=== PATIENT | female | born 1925 | race Caucasian/White ===

== ENCOUNTER 2016-04-20 17:45 | Emergency (ER) | payer MEDICARE, BC ==
[2016-03-01 11:02] VITALS: BMI 23.3
[~2016-04-20 17:45] MED LIST: ALAVERT10 MG/TAB PO; BAYER ASPIRIN325 MG PO; CALCIUM 600 +1 EAC3 PO; CARBIDOPA-LEVO1 EAC2 PO; COLACE100 MG PO; LOPRESSOR25 MG PO; MACRODANTIN50 MG PO; MIRALAX17 GM PO; NORVASC5 MG PO; OMEGA 3 FISH OI1 CAP PO; PLAVIX75 MG PO; TAMOXIFEN CITRA20 MG PO; ZOCOR5 MG PO
== END 2016-04-21 00:01 | disposition home or self-care (01) ==
LOC: D.ER 17:45
DX: S09.90XA Unspecified injury of head, initial encounter (principal); M54.2 Cervicalgia; W06.XXXA Fall from bed, initial encounter; Y93.89 Activity, other specified; Y92.122 Bedroom in nursing home as the place of occurrence of the external cause; C50.919 Malignant neoplasm of unspecified site of unspecified female breast; I50.9 Heart failure, unspecified; I10 Essential (primary) hypertension; Z86.73 Personal history of transient ischemic attack (TIA), and cerebral infarction without residual deficits

== ENCOUNTER → 2016-05-10 16:44 | Outpatient (CLI) | payer MEDICARE, BC ==
[2016-03-01 11:02] VITALS: BMI 23.3
[~2016-05-10 16:44] MED LIST changes: +ACETAMINOPHEN325 MG PO; +BAYER CHEWABLE81 MG PO; +CELEXA20 MG PO; +CHILDREN'S CLARI5 MG PO; +MECLIZINE HCL25 MG PO; +MELATONIN 3 MG1 TAB PO; +OMEPRAZOLE20 M1 PO; +SENNA PLUS TA1 UDTAB PO; +ULTRAM50 MG PO
== END | disposition home or self-care (01) ==
LOC: D.MAMMO 04-29 10:30 → D.US 04-29 11:30 → D.MAMMO 10:30
DX: R92.8 Other abnormal and inconclusive findings on diagnostic imaging of breast (principal)

== ENCOUNTER 2016-08-01 10:57 | Outpatient (CLI) | payer MEDICARE, BC ==
[~2016-08-01] VITALS: Ht 162.6 cm; Wt 61.6 kg
--- NOTE | ~2016-08-01 | HEMODYNAMI ---
PATIENT:SHERI PATRICK MEDICAL RECORD: [id number] : [birth year] [id number] ADMISSION DATE: 08/01/16 Generatedon:08/01/201617:05 Patient name: SHERI PATRICK Patient #: [id number] : 1925 Date of study: 08/01/2016 Page: Of Hemodynamic Procedure Report Patient Data Patient Demographics Procedure consent was obtained First Name: SHERI Gender: Female Last Name: DARNELL : 1925 Patient #: [id number] Age: 89 year(s) Race: SSN: [id number] Additional ID: [id number] Contact details Address: [address] [place] [address] State: [place] City: [place] Zip code: [address] Past Medical History Allergies Allergen Reaction Date Comments Reported Other allergy 08/01/2016 phenobarbitol, sulfa Admission Admission Data Admission Date: 08/01/2016 Admission Time: 10:57 Arrival Date: 08/01/2016 Arrival Time: 10:57 Admit Source: Other Insurance Payor: Medicare Room #: D.2126 Weight (lbs.): 130 Weight (kg.): 58.97 Lab Results Lab Result Date: 08/01/2016 Lab Result Time: 0:00 Biochemistry Name Units Result Min Max Creatinine mg/dl 1.2 --(---*)-- 0.6 1.3 Troponin l ng/ml 0.325 --(----)-* 0 0.06 CBC Name Units Result Min Max Hematocrit % 32.5 *-(----)-- 42 54 Hemoglobin g/dl 10.8 *-(----)-- 13.5 17.5 Procedure Procedure Types Cath Procedure Diagnostic Procedure [facility] w/Coronaries PCI Procedure Coronary Stent Initial Miscellaneous Procedures Moderate Sedation up to 15 minutes Procedure Description Procedure Date Procedure Date: 08/01/2016 Procedure Start Time: 16:43 Procedure End Time: 17:00 Procedure Staff Name Function Alessandro Johnson MD Performing Physician Maribeth Eisenberg RN Nurse Darrick Fenton RT Scrub Ana Grace RT Monitor Procedure Data Cath Procedure Fluoroscopy Diagnostic fluoroscopy Total fluoroscopy Time: 3.3 time: 3.3 min min Diagnostic fluoroscopy Total fluoroscopy dose: 313 dose: 313 mGy mGy Contrast Material Contrast Material Type Amount (ml) Isovue 370 80 Entry Location Entry Primary Successful Side Size Upsize Upsize Entry Closure Succes sful Closure Location (Fr) 1 (Fr) 2 (Fr) Remarks Device Remarks Femoral Right 5 Fr 6 Fr artery Short Estimated blood loss: 5 ml Diagnostic catheters Device Type Used For End Catheter Placement Cordis 5Fr Pigtail LV Angiography Catheter (MP) Cordis 5Fr JL 4.0 Left Coronary Catheter (MP) Angiography Cordis 5Fr 3DRC Catheter Right Coronary (MP) Angiography Procedure Complications No complications Procedure Medications Medication Administration Route Dosage Oxygen NC 2 l/min Heparin Flush Bag added to field 2 bags (1000units/500ml NS) Lidocaine 2% added to field 20 Versed I.V. 1 mg Fentanyl I.V. 50 mcg Versed I.V. 0.5 mg Fentanyl I.V. 25 mcg Heparin Bolus I.V. 4000 units Integrilin (Bolus I.V. 5 ml 2mg/ml) Hemodynamics Rest Heart Rate: 78 (bpm) Snapshots Pre Cath Intra NCS Post Cath Vital Signs Time Heart Resp SPO2 etCO2 [id number] NIBP (mmHg) Rhythm Pain Sedatio n Rate (ipm) (%) (mmHg) (mmHg) Status Level (bpm) 16:36:03 88 16 97 0 0 178/102(141) NSR 0 (11) 10(A) , No pain 16:40:27 82 16 100 0 0 161/88(110) NSR 0 (11) 10(A) , No pain 16:44:43 77 16 100 0 0 128/70(102) NSR 0 (11) 9(A) , No pain 16:48:55 75 21 100 0 0 111/62(87) NSR 0 (11) 9(A) , No pain 16:53:03 77 12 99 0 0 113/65(80) NSR 0 (11) 9(A) , No pain 16:57:11 80 16 99 0 0 102/63(79) NSR 0 (11) 9(A) , No pain Medications Time Medication Route Dose Verified Delivered Reason Notes Effectiveness by by 16:38:51 Oxygen NC 2 Alessandro Maribeth Per physician l/min Alex Eisenberg RN 16:38:58 Heparin Flush added 2 Alessandro Alessandro used for Bag to bags Alex Johnson MD procedure (1000units/500ml field NS) 16:39:07 Lidocaine 2% added 20ml Alessandro Alessandro used for to vial Alex Johnson MD procedure field 16:40:46 Versed I.V. 1 mg Alessandro Maribeth for sedation Alex Eisenberg RN 16:40:52 Fentanyl I.V. 50 Alessandro Maribeth for sedation mcg Alex Eisenberg RN 16:43:49 Versed I.V. 0.5 Alessandro Maribeth for sedation mg Alex Eisenberg RN 16:43:58 Fentanyl I.V. 25 Alessandro Maribeth for sedation mcg Alex Eisenberg RN 16:51:45 Heparin Bolus I.V. 4000 Alessandro Maribeth for dose units Alex Eisenberg RN anticoagulation verified with dr johnson 16:55:11 Integrilin I.V. 5 ml Alessandro Maribeth for 5ml (Bolus 2mg/ml) Alex Eisenberg RN antiplatelet wasted therapy Procedure Log Time Note 16:13:59 Darrick Fenton RT(R) sent for patient. Start room use. 16:14:00 Time tracking: Regular hours 16:14:05 Plan of Care:Hemodynamics will remain stable., Cardiac rhythm will remain stable., Comfort level will be maintained., Respiratory function will remain adequate., Patient/ family verbilizes understanding of procedure., Procedure tolerated without complication., Recovers from procedure without complications.. 16:34:52 Vital chart was started 16:37:03 Patient received from PCU to CCL 1 Alert and oriented. Tansferred to table in Supine position. 16:37:04 Warm blankets applied, and haritha hugger turned on for patient comfort. 16:37:04 Correct patient and procedure confirmed by team. 16:37:05 Signed procedure consent form obtained from patient. 16:37:06 ECG and BP/O2 sat monitors applied to patient. 16:37:10 Rhythm: sinus rhythm 16:37:19 Full Disclosure recording started 16:37:26 H&P Date Dictated: 08/01/2016 Within 30 days and on chart.. 16:37:28 Pre-op teaching completed and patient verbalized understanding. 16:37:28 Pre-procedure instructions explained to patient. 16:37:31 Family in patients room. 16:37:34 Patient NPO since Midnight. 16:37:50 Patient allergic to Other allergyphenobarbitol, sulfa 16:37:52 Is the patient allergic to Iodine/contrast media? No. 16:37:58 Is patient on blood thinner?No 16:38:01 Patient diabetic? No. 16:38:08 Previous problem with sedation/anesthesia? No ? 16:38:08 Snore? Yes 16:38:09 Sleep apnea? No 16:38:10 Deviated septum? No 16:38:11 Opens mouth fully? Yes 16:38:12 Sticks out tongue? Yes 16:38:13 Airway obstruction? No ? 16:38:17 Dentures? Yes In 16:38:21 Pre procedure: right dorsailis pedis pulse 2+ Normal; easily identifiable; not easily obliterated 16:38:23 Patient pain scale 0/10 ?. 16:38:31 IV patent on arrival in left forearm with 0.9% NaCl at [facility]. 16:38:51 Oxygen 2 l/min NC was administered by Maribeth Eisenberg RN; Per physician; 16:38:58 Heparin Flush Bag (1000units/500ml NS) 2 bags added to field was administered by Alessandro Johnson MD; used for procedure; 16:39:07 Lidocaine 2% 20ml vial added to field was administered by Alessandro Johnson MD; used for procedure; 16:39:45 Lab Result : Creatinine 1.2 mg/dl 16:39:45 Lab Result : Troponin l 0.325 ng/ml 16:39:45 Lab Result : Hematocrit 32.5 % 16:39:45 Lab Result : Hemoglobin 10.8 g/dl 16:39:49 Lab results completed and on chart. 16:39:53 Right groin area was prepped with chlora-prep and draped in sterile fashion 16:39:54 Alarms reviewed by R. N. 16:39:54 Sharps counted by scrub and verified by R.N. 16:40:04 Use device set Femoral Dx 16:40:05 Acist Syringe opened to sterile field. 16:40:05 Bag Decanter opened to sterile field. 16:40:06 Medline Cath Pack opened to sterile field. 16:40:06 Terumo 5Fr [employer] Sheath opened to sterile field. 16:40:06 St Branden 260cm J .035 wire opened to sterile field. 16:40:07 Acist Hand Control opened to sterile field. 16:40:08 Acist Manifold opened to sterile field. 16:40:09 Diagnostic Infinity 5Fr Multipack catheter opened to sterile field. 16:40:10 Tegaderm 4 x 4 opened to sterile field. 16:40:19 Final Timeout: patient, procedure, and site verified with staff and physician. All members of the team are in agreement. 16:40:20 Right groin site verified by team. 16:40:22 Physical assessment completed. ASA score P 2 - A patient with mild systemic disease as per Alessandro Johnson MD. 16:40:25 Sedation plan: IV Moderate Sedation Versed, Fentanyl 16:40:46 Versed 1 mg I.V. was administered by Maribeth iEsenberg RN; for sedation; 16:40:52 Fentanyl 50 mcg I.V. was administered by Maribeth Eisenberg RN; for sedation; 16:42:51 Procedure started. 16:43:31 Zero performed for pressure channel P1 16:43:49 Versed 0.5 mg I.V. was administered by Maribeth Eisenberg RN; for sedation; 16:43:54 Local anesthetic to right femoral artery with Lidocaine 2% by Alessandro Johnson MD.INITIAL ACCESS ONLY 16:43:58 Fentanyl 25 mcg I.V. was administered by Maribeth Eisenberg RN; for sedation; 16:44:44 A 5 Fr sheath was inserted into the Right Femoral artery 16:45:59 Baseline sample Acquired. 16:47:06 A Cordis 5Fr Pigtail Catheter (MP) was advanced over the wire and used for LV Angiography. 16:47:18 Catheter removed. 16:47:32 A Cordis 5Fr JL 4.0 Catheter (MP) was advanced over the wire and used for Left Coronary Angiography. 16:48:09 LCA angiography performed. 16:48:13 Injector settings: Ml/sec: 3, Volume: 6, 16:48:58 Catheter removed. 16:49:03 A Cordis 5Fr 3DRC Catheter (MP) was advanced over the wire and used for Right Coronary Angiography. 16:50:13 RCA angiography performed. 16:50:16 Injector settings: Ml/sec: 3, Volume: 6, 16:50:19 Catheter removed. 16:50:20 Proceeding to intervention. 16:50:56 Terumo 6Fr [employer] Sheath opened to sterile field. 16:51:07 Coello Whisper J 300cm 0.014 guide wire opened to sterile field. 16:51:09 [employer] BasixCompak Inflation Kit opened to sterile field. 16:51:23 Medtronic Launcher 6Fr HS I SH guide catheter opened to sterile field. 16:51:41 Sheath upsized to a 6 Fr Short. 16:51:45 Heparin Bolus 4000 units I.V. was administered by Maribeth Eisenberg RN; for anticoagulation; dose verified with dr johnson 16:51:48 6 Fr hs 1 sh guide catheter was inserted over the wire 16:51:53 AzulStarisper wire advanced. 16:51:55 Wire advanced across lesion. 16:53:01 Inflation number: 1 A Isabel Nimbus Discovery Columbia 3.5 X 15 balloon was prepped and advanced across the Mid RCA, then inflated to 11 YASSINE for 0:10 (min:sec). 16:53:21 Balloon removed over the wire. 16:55:11 Integrilin (Bolus 2mg/ml) 5 ml I.V. was administered by Maribeth Eisenberg RN; for antiplatelet therapy; 5ml wasted 16:55:50 Inflation Number: 2 A Biofreedom 4.0 X 14 stent was prepped and advanced across the Mid RCA. The stent was deployed at 9 YASSINE for 0:10 (min:sec). 16:56:01 Stent catheter was removed intact over wire. 16:56:02 Wire removed. 16:56:03 Guide catheter removed. 16:56:45 Cordis 6Fr Exoseal opened to sterile field. 16:56:57 Procedure ended.(Physican Out) 16:57:17 Fluoroscopy time 03.30 minutes. 16:57:56 Flurop Dose total: 313 16:57:56 Fluoroscopy dose: 313 mGy 16:57:59 Contrast amount:Isovue 370 80ml. 16:58:01 Sharps counted by scrub and verified by R.N. 16:58:05 Insertion/operative site no bleeding no hematoma. 16:58:09 Post-op/insertion site Right Femoral artery dressed using a 4 x 4 and Tegaderm. 16:58:14 Post right femoral artery:stable 16:58:16 Post Procedure Pulses reassessed and unchanged 16:58:19 Post procedure rhythm: unchanged. 16:59:52 Estimated blood loss: 5 ml 16:59:54 Post procedure instruction explained to patient.Patient verbalizes understanding. 16:59:54 Patient needs reinforcement of post procedure teaching. 17:00:13 Procedure type changed to Cath procedure, Diagnostic procedure, LHC, LHC w/Coronaries, PCI procedure, Coronary Stent Initial, Miscellaneous Procedures, Moderate Sedation up to 15 minutes 17:00:14 Procedure and supply charges have been captured, reviewed, submitted and are correct. 17:00:24 Procedure Complication : No complications 17:00:27 Vital chart was stopped 17:00:27 See physician's report for complete and final results. 17:00:36 Report given to Med II. 17:00:40 Patient transfered to Med II with Stretcher. 17:00:42 Procedure ended. 17:00:42 Full Disclosure recording stopped 17:01:00 ACC-PCI Only Patient was given prescriptions, or instructed by Alessandro Johnson MD to start/continue the following medications upon discharge: Plavix 17:01:01 End room use (Document Last) 17:01:37 Admit Source: Other 17:01:39 Arrival Date: 08/01/2016 10:57:00 AM 17:01:56 Insurance Payor : Medicare 17:02:25 Patient Weight : 130 kg Intervention Summary Intervention Notes Time ActionType Lesion and Equipment Action# Pressure Duration Attributes Used 16:53:01 Inflate Mid RCA Isabel Sci 1 11 00:10 balloon Columbia 3.5 X 15 balloon 16:55:50 Place stent Mid RCA Biofreedom 2 9 00:10 4.0 X 14 stent Device Usage Item Name Manufacture Quantity Catalog Number Hospital Part Current Mini mal Lot# / Charge Number Stock Stock Serial# Code Acist Acist 1 [id number] 490809 304942 20 CCM Benchmark Inc Bag Microtek 1 2002S 675740 10244 700053 5 CureDM Inc. Medline Cardinal 1 [id number] 990782 94923 321232 5 Cath Pack Health Terumo 5Fr Terumo 1 NHL929 000220 906664 175704 [address] St Branden 1 508114 835673 316295 617528 30 260cm J .035 wire Acist Hand Acist 1 89313 933728 090657 195229 5 Control Medical Systems Inc Acist Acist 1 47835 607145 408089 764548 5 Manifold Medical Systems Inc Diagnostic Cardinal 1 [id number] 730404 15914 552354 30 Infinity Health 5Fr Multipack catheter Tegaderm 4 3M 1 1626W 018649 359198 481252 5 x 4 Cordis 5Fr Cardinal 1 457903 5 Pigtail Health Catheter (MP) Cordis 5Fr Cardinal 1 878906 5 JL 4.0 Health Catheter (MP) Cordis 5Fr Cardinal 1 731341 5 3DRC Health Catheter (MP) Terumo 6Fr Terumo 1 [id number] 286429 782183 417899 40 [employer] Sheath Coello Coello 1 [id number] 008362 192307 542214 5 Whisper J Vascular 300cm 0.014 guide wire Merit Merit 1 [id number] 624730 169969 533865 15 [facility] Medical Inflation Kit Medtronic Medtronic 1 [id number] 39082 679598 1 Launcher 6Fr HS I SH guide catheter Isabel Sci Isabel 1 [id number] 379244 748717 504070 1 [id number] [employer] 3.5 X 15 balloon Biofreedom Biosensors 1 [facility]-3943 731736 103328 5 [id number] 4.0 X 14 Europe SA stent Cordis 6Fr Cardinal 1 EX600 977858 197815 693047 10 Live [facility] BeMyGuest Signature Audit [place] Stage Time Signature Unsigned Intra-Procedure 08/01/2016 Ana Grace 5:04:58 PM RT(R) Signatures Monitor : Ana Grace RT Signature : Date : Time : [facility] [address] [place] [address]
--- NOTE | ~2016-08-01 | HEMODYNAMI ---
PATIENT:SHERI PATRICK MEDICAL RECORD: [id number] : [birth year] LOCATION:[facility] D.2126 ADMISSION DATE: 08/01/16 Generatedon:08/02/20169:10 Patient name: SHERI PATRICK Patient #: [id number] : 1925 Date of study: 08/02/2016 Page: Of Hemodynamic Procedure Report Patient Data Patient Demographics Procedure consent was obtained First Name: SHERI Gender: Female Last Name: DARNELL : 1925 Patient #: [id number] Age: 89 year(s) Race: SSN: [id number] Additional ID: [id number] Contact details [address]: [address] [place] [address] State: [place] City: [place] Zip code: [address] Past Medical History Allergies Allergen Reaction Date Comments Reported Other allergy 08/01/2016 phenobarbitol, sulfa Admission Admission Data Admission Date: 08/01/2016 Admission Time: 10:57 Arrival Date: 08/01/2016 Arrival Time: 10:57 Admit Source: Other Insurance Payor: Medicare Room #: D.2126 Height (in.): 64 BSA: 1.66 (m2) Height (cm.): 162.56 BMI: 23.17 (kg/m2) Weight (lbs.): 135 Weight (kg.): 61.23 Lab Results Lab Result Date: 08/01/2016 Lab Result Time: 0:00 Biochemistry Name Units Result Min Max Creatinine mg/dl 1.2 --(---*)-- 0.6 1.3 Troponin l ng/ml 0.325 --(----)-* 0 0.06 CBC Name Units Result Min Max Hematocrit % 32.5 *-(----)-- 42 54 Hemoglobin g/dl 10.8 *-(----)-- 13.5 17.5 Procedure Procedure Types Cath Procedure PCI Procedure Coronary Stent Initial Miscellaneous Procedures Moderate Sedation up to 30 minutes Procedure Description Procedure Date Procedure Date: 08/02/2016 Procedure Start Time: 8:51 Procedure End Time: 9:09 Procedure Staff Name Function Alessandro Johnson MD Performing Physician Madelyn Burton RT Scrub Randy Nj RN Nurse Tonio Badillo RT Monitor Procedure Data Cath Procedure Fluoroscopy Diagnostic fluoroscopy Total fluoroscopy Time: 3.9 time: 3.9 min min Diagnostic fluoroscopy Total fluoroscopy dose: dose: 262.08 mGy 262.08 mGy Contrast Material Contrast Material Type Amount (ml) Isovue 300 84 Entry Location Entry Primary Successful Side Size Upsize Upsize Entry Closure Succes sful Closure Location (Fr) 1 (Fr) 2 (Fr) Remarks Device Remarks Femoral Left 6 Fr Exoseal artery Short Estimated blood loss: 10 ml Procedure Complications No complications Procedure Medications Medication Administration Route Dosage Oxygen NC 2 l/min Heparin Flush Bag added to field 2 bags (1000units/500ml NS) 0.9% NaCl I.V. 100 ml/hr Fentanyl I.V. 50 mcg Versed I.V. 1 mg Heparin Bolus I.V. 4000 units Hemodynamics Rest BSA: 1.66 (m2) HGB: 10.8 (g/dl) O2 Consumption: Estimated: 155.63 (ml/min) O2 Co nsumption indexed: Estimated:93.75 (ml/min/m) Heart Rate: 85 (bpm) Snapshots Pre Cath Intra NCS Post Cath Vital Signs Time Heart Resp SPO2 NIBP (mmHg) Rhythm Pain Sedation Rate (ipm) (%) Status Level (bpm) 8:38:58 81 19 95 136/69(114) NSR 0 (11) 10(A) , No pain 8:43:14 81 17 96 126/69(102) NSR 0 (11) 10(A) , No pain 8:47:24 71 16 100 131/74(113) NSR 0 (11) 10(A) , No pain 8:51:36 70 18 100 78/45(62) NSR 0 (11) 9(A) , No pain 8:55:40 69 18 99 69/43(59) NSR 0 (11) 9(A) , No pain 8:59:41 70 18 100 71/35(50) NSR 0 (11) 9(A) , No pain 9:04:28 78 18 100 101/51(82) NSR 0 (11) 9(A) , No pain 9:08:36 75 11 99 92/53(69) NSR 0 (11) 9(A) , No pain Medications Time Medication Route Dose Verified Delivered Reason Notes Effectiveness by by 8:41:25 Oxygen NC 2 Randy Andradey Per physician l/min Clem Nj RN RN 8:41:35 Heparin Flush added 2 Randy Randy used for Bag to bags Clem Nj RN procedure (1000units/500ml field RN NS) 8:41:52 0.9% NaCl I.V. 100 Randy Randy Per physician ml/hr Clem Nj RN RN 8:45:57 Fentanyl I.V. 50 Randy Randy for sedation mcg Clem Nj RN RN 8:46:04 Versed I.V. 1 mg Randy Randy for sedation Clem Nj RN RN 8:55:44 Heparin Bolus I.V. 4000 Randy Padilla for units Clem Nj RN anticoagulation wine steward/stewardess Log Time Note 8:11:27 Randy Nj RN sent for patient. Start room use. 8:19:29 Time tracking: Regular hours 8:19:33 Plan of Care:Hemodynamics will remain stable., Cardiac rhythm will remain stable., Comfort level will be maintained., Respiratory function will remain adequate., Patient/ family verbilizes understanding of procedure., Procedure tolerated without complication., Recovers from procedure without complications.. 8:23:54 H&P Date Dictated: 08/01/2016 Within 30 days and on chart.. 8:24:10 Is patient on blood thinner?Yes 8:24:14 ACC The patient was administered the following blood thiners within the last 24 hours: ACCAspirin, ACCPlavix 8:28:44 Patient received from PCU to CCL 3 Alert and oriented. Tansferred to table in Supine position. 8:28:45 Warm blankets applied, and haritha hugger turned on for patient comfort. 8:28:46 Correct patient and procedure confirmed by team. 8:28:47 Signed procedure consent form obtained from patient. 8:28:48 ECG and BP/O2 sat monitors applied to patient. 8:28:49 Full Disclosure recording started 8:37:54 Vital chart was started 8:37:57 Rhythm: sinus rhythm 8:38:01 Pre-procedure instructions explained to patient. 8:38:01 Pre-op teaching completed and patient verbalized understanding. 8:41:05 Baseline sample Acquired. 8:41:25 Oxygen 2 l/min NC was administered by Randy Nj RN; Per physician; 8:41:35 Heparin Flush Bag (1000units/500ml NS) 2 bags added to field was administered by Randy Nj RN; used for procedure; 8:41:52 0.9% NaCl 100 ml/hr I.V. was administered by Randy Nj RN; Per physician; 8:42:14 Family in patients room. 8:42:15 Patient NPO since Midnight. 8:42:22 Is the patient allergic to Iodine/contrast media? No. 8:42:48 Patient diabetic? No. 8:42:52 Previous problem with sedation/anesthesia? No ? 8:42:53 Snore? Yes 8:42:54 Sleep apnea? No 8:42:55 Deviated septum? No 8:42:56 Opens mouth fully? Yes 8:42:57 Sticks out tongue? Yes 8:42:59 Airway obstruction? No ? 8:43:01 Dentures? Yes In 8:43:04 Pre procedure: left dorsailis pedis pulse 2+ Normal; easily identifiable; not easily obliterated 8:43:06 Patient pain scale 0/10 ?. 8:43:11 IV patent on arrival in left hand with 0.9% NaCl at KVO. 8:43:18 Lab results completed and on chart. 8:43:20 Left groin area was prepped with chlora-prep and draped in sterile fashion 8:43:21 Alarms reviewed by R. N. 8:43:21 Sharps counted by scrub and verified by R.N. 8:43:31 Use device set Femoral PCI 8:43:33 Acist Syringe opened to sterile field. 8:43:33 Acist Hand Control opened to sterile field. 8:43:34 Bag Decanter opened to sterile field. 8:43:35 Medline Cath Pack opened to sterile field. 8:43:37 Terumo 6Fr [place] Sheath opened to sterile field. 8:43:37 St Branden 260cm J .035 wire opened to sterile field. 8:43:38 Merit BasixCompak Inflation Kit opened to sterile field. 8:43:39 Acist Manifold opened to sterile field. 8:43:40 Tegaderm 4 x 4 opened to sterile field. 8:44:09 Final Timeout: patient, procedure, and site verified with staff and physician. All members of the team are in agreement. 8:44:14 Left groin site verified by team. 8:44:24 Physical assessment completed. ASA score P 2 - A patient with mild systemic disease as per Alessandro Johnson MD. 8:44:26 Sedation plan: IV Moderate Sedation Versed, Fentanyl 8:45:57 Fentanyl 50 mcg I.V. was administered by Randy Nj RN; for sedation; 8:46:04 Versed 1 mg I.V. was administered by Randy Nj RN; for sedation; 8:46:38 Zero performed for pressure channel P1 8:48:25 Cordis 6FR XBLAD 3.5 guide catheter opened to sterile field. 8:48:28 Procedure started. 8:51:33 Local anesthetic to left femerol artery with Lidocaine 2% by Alessandro Johnson MD.INITIAL ACCESS ONLY 8:53:08 A 6 Fr Short sheath was inserted into the Left Femoral artery 8:53:20 6 Fr XBLAD 3.5 guide catheter was inserted over the wire 8:55:27 Whisper wire advanced. 8:55:44 Heparin Bolus 4000 units I.V. was administered by Randy Nj RN; for anticoagulation; 8:57:45 Inflation Number: 1 A Biofreedom 3.0 x 11 stent was prepped and advanced across the Prox LAD. The stent was deployed at 13 YASSINE for 0:09 (min:sec). 8:58:10 Stent catheter was removed intact over wire. 8:59:41 Inflation Number: 2 A Biofreedom 3.0 x 8 stent was prepped and advanced across the Prox LAD. The stent was deployed at 17 YASSINE for 0:00 (min:sec). 8:59:55 Stent catheter was removed intact over wire. 9:01:24 Inflation number: 3 A NC Euphora 3.5 x 8 balloon was prepped and advanced across the Prox LAD, then inflated to 15 YASSINE for 0:15 (min:sec). 9::26 Balloon removed over the wire. 9:02:27 Wire removed. 9:02:27 Guide catheter removed. 9:02:44 Cordis 6Fr Exoseal opened to sterile field. 9:02:51 Sheath removed intact; hemostasis achieved with Exoseal to the Left Femoral artery. 9:02:53 Procedure ended.(Physican Out) 9:03:04 Fluoroscopy time 03.90 minutes. 9:03:09 Flurop Dose total: 262.08 9:03:09 Fluoroscopy dose: 262.08 mGy 9:03:13 Contrast amount:Isovue 300 84ml. 9:03:15 Sharps counted by scrub and verified by R.N. 9:03:16 Insertion/operative site no bleeding no hematoma. 9:03:19 Post-op/insertion site Left Femoral artery dressed using a 4 x 4 and Tegaderm. 9:03:23 Post left femerol artery:stable, clean and dry 9:03:27 Post Procedure Pulses reassessed and unchanged 9:03:30 Post-procedure physical assessment completed. ASA score P 2 - A patient with mild systemic disease as per Alessandro Johnson MD. 9:03:32 Post procedure rhythm: unchanged. 9:03:35 Estimated blood loss: 10 ml 9:03:36 Post procedure instruction explained to patient.Patient verbalizes understanding. 9:03:37 Patient needs reinforcement of post procedure teaching. 9:03:55 Procedure type changed to Cath procedure, PCI procedure, Coronary Stent Initial, Miscellaneous Procedures, Moderate Sedation up to 30 minutes 9:04:01 Procedure Complication : No complications 9:04:03 See physician's report for complete and final results. 9:05:05 Coello Whisper J 300cm 0.014 guide wire opened to sterile field. 9:06:17 Patient Height : 162.56 cm 9:06:20 Patient Weight : 61.23 kg 9:06:28 Procedure and supply charges have been captured, reviewed, submitted and are correct. 9:09:33 Vital chart was stopped 9:09:37 Report given to PCU. 9:09:41 Patient transfered to PCU with Bed. 9:09:52 Procedure ended. 9:09:52 Full Disclosure recording stopped 9:09:58 End room use (Document Last) Intervention Summary Intervention Notes Time ActionType Lesion and Equipment Action# Pressure Duration Attributes Used 8:57:45 Place stent Prox LAD Biofreedom 1 13 00:09 3.0 x 11 stent 8:59:41 [address] stent Prox LAD Biofreedom 2 17 00:00 3.0 x 8 stent 9:01:24 Inflate Prox LAD NC Euphora 3 15 00:15 balloon 3.5 x 8 balloon Device Usage Item Name Manufacture Quantity Catalog Hospital Part Current Minimal Lot# / Number Charge Number Stock Stock Serial# Code Acist Acist 1 37031 932688 172525 146852 20 Syringe Medical Systems Inc Acist Hand Acist 1 97358 049922 107685 395377 5 Control Medical Systems Inc Bag Microtek 1 2002S 517908 50544 500106 5 Visonys Inc. Medline Cardinal 1 [id number] 555416 75670 978679 5 Cath Pack Health Terumo 6Fr Terumo 1 [id number] 991283 543560 271868 [address] [place] [address] St Branden 1 357941 831805 480982 629522 30 260cm J .035 wire Merit Merit 1 [id number] 786351 401454 711541 15 BasixPlastiques Wolinakk Medical Inflation Kit Acist Acist 1 07051 274714 228551 712296 5 Manifold Medical Systems Inc Tegaderm 4 3M 1 1626W 473950 167771 453779 5 x 4 Cordis 6FR Cardinal 1 [id number] 666277 949462 634177 10 XBLAD 3.5 Health guide catheter Biofreedom Biosensors 1 [facility]2-3011 587794 893714 5 [id number] 3.0 x 11 [place] SA stent Biofreedom Biosensors 1 [facility]2-3008 242595 654009 5 [id number] 3.0 x 8 Europe SA stent NC Euphora Medtronic 1 [id number] 267623 725927 620456 1 [id number] 3.5 x 8 balloon Cordis 6Fr Cardinal 1 EX600 137580 276453 699227 10 Movity Coello 1 [id number] 630686 339044 010307 5 Whisper J Vascular 300cm 0.014 guide wire Signature Audit [place] Stage Time Signature Unsigned Intra-Procedure 08/02/2016 Madelyn 9:10:10 AM Counts RT(R) Signatures Monitor : Tonio Badillo RT Signature : Date : Time : [address] [place] [address]
[~2016-08-01 10:57] MED LIST changes: -ACETAMINOPHEN325 MG PO; -BAYER CHEWABLE81 MG PO; -CELEXA20 MG PO; -CHILDREN'S CLARI5 MG PO; -MECLIZINE HCL25 MG PO; -MELATONIN 3 MG1 TAB PO; -OMEPRAZOLE20 M1 PO; -SENNA PLUS TA1 UDTAB PO; -ULTRAM50 MG PO
[2016-08-01 13:05] LABS: BASOPHILS 0.3 % (0-2); EOSINOPHILS 0.9 % (0-7); HEMATOCRIT 32.5 % (36.0-48.0); HEMOGLOBIN 10.8 g/dL (12-16); IMMATURE GRANULOCYTES 0.1 % (0-5); LYMPHOCYTES 15.9 % (15-50); MCH 31.5 pg (26.0-34.0); MCHC 33.2 g/dL (31.0-37.0); MCV 94.8 fL (80.0-100.0); MEAN PLATELET VOLUME 9.4 fL (7.4-10.4); MONOCYTES 4.6 % (2-11); NEUTROPHILS 78.2 % (40-80); PLATELET COUNT 208 10x3/uL (130-400); RBC 3.43 10x6/uL (4.00-5.40); RDW 13.7 % (11.5-14.5); WBC 6.7 10x3/uL (4.8-10.8)
[2016-08-01 13:29] LABS: ALBUMIN 3.3 g/dL (3.4-5.0); ANION GAP 12.8 mmol/L (8-16); BILIRUBIN - TOTAL 0.59 mg/dL (0.2-1.3); CALCIUM 8.2 mg/dL (8.5-10.1); CARBON DIOXIDE 27.3 mmol/L (21.0-32.0); CREATININE - SERUM 1.2 mg/dL (0.6-1.3); POTASSIUM - SERUM 4.1 mmol/L (3.5-5.1); PROTEIN - SERUM 6.8 g/dL (6.4-8.2)
[2016-08-01 13:51] LABS: TROPONIN-I 0.325 ng/mL (0.000-0.060)
[2016-08-01 16:18] VITALS: BP 176/100
[2016-08-01 16:39] LABS: CKMB 1.6 U/L (0.0-3.6); CREATINE KINASE 35 UL (21-215)
[2016-08-01] MEDS ORDERED: CHILDREN'S CLARI5 MG PO (17:54)
[2016-08-01] MEDS ORDERED: BAYER CHEWABLE81 MG PO (17:57)
[2016-08-01] MEDS ORDERED: MECLIZINE HCL25 MG PO (17:58)
[2016-08-01] MEDS ORDERED: ACETAMINOPHEN325 MG PO (17:59)
[2016-08-01] MEDS ORDERED: SENNA PLUS TA1 UDTAB PO (18:00)
[2016-08-01] MEDS ORDERED: CELEXA20 MG PO (18:00)
[2016-08-01] MEDS ORDERED: OMEPRAZOLE20 M1 PO (18:01)
[2016-08-01] MEDS ORDERED: MELATONIN 3 MG1 TAB PO (18:01)
[2016-08-01] MEDS ORDERED: ULTRAM50 MG PO (18:02)
--- NOTE | 2016-08-01 19:25 | NUR ---
RECIEVED SHIFT REPORT. PT IS LYING IN BED. PT IS ALERT AND ORIENTED AND ABLE TO VERBALIZE NEEDS. IV IS PATENT AND FLUIDS ARE RUNNING PER ORDER. FEM STOP TO RIGHT GROIN IN PLACE WITH DRESSING C/D/I. PT DENIES ANY PAIN AT THIS TIME. NO NEEDS ARE VERBALIZED AT THIS TIME. DAUGHTER IS AT THE BEDSIDE. WILL CONTINUE TO MONITOR. SIDE RAILS ARE UP X 2. BED IS IN LOWEST POSITION. BED ALARM IS ON FOR SAFETY. CALL LIGHT IS WITHIN REACH.
[2016-08-01 20:10] VITALS: BP 138/75
--- NOTE | 2016-08-01 22:55 | NUR ---
SHIFT ASSESSMENT COMPLETED. NIGHT MEDS GIVEN WITH NO PROBLEMS. 18F INDWELLING OSUNA CATHETER PLACED USING STERILE TECHNIQUE WITH NO PROBLEMS. PT TOLERATED WELL. NO NEEDS ARE VOICED. WILL MONITOR. DAUGHTER AT BEDSIDE. SIDE RAILS X 2. BED LOW. BED ALARM ON. CALL LIGHT IN REACH.
[2016-08-02 00:05] VITALS: BP 133/70
[2016-08-02 03:37] VITALS: BP 113/74
[2016-08-02 04:17] VITALS: Ht 162.6 cm; Wt 61.6 kg
--- NOTE | 2016-08-02 07:30 | NUR ---
RESTING QUIETLY RESP UNLABORED NAD NOTED AT THIS TIME DAUGHTER AT BEDSIDE
--- NOTE | 2016-08-02 07:45 | NUR ---
ASSESSMENT COMPLETED. DENIES ANY NEEDS. RIGHT GROIN SOFT WITH DRSG DRY AND INTACT. LEFT AC SL. TELEMERTY SHOWS SR AT 80. O2 AT 3 L/M PER NC. PT IS NENANA. NPO FOR CATH TODAY
[2016-08-02 08:08] VITALS: BP 135/67
--- NOTE | 2016-08-02 09:26 | HP ---
PATIENT: SHERI MARIE MEDICAL RECORD: [id number] ACCOUNT: [id number] LOCATION:[address] : [birth year] ADMISSION DATE: 08/01/16 HISTORY AND PHYSICAL EXAMINATION DATE OF SERVICE: 08/01/2016 DIAGNOSES: 1. Angina. 2. Supraventricular tachycardia. 3. Coronary artery disease. 4. Hemorrhagic cerebrovascular accident, February 2016. 5. Hypertension. 6. Hyperlipidemia. 7. Parkinson's -- mild. HISTORY OF PRESENT ILLNESS: Mrs. Marie presents with anginal symptomatology for 2 days. She has been having on and off angina. When paramedics arrived to transport her to the hospital, she was in a supraventricular tachycardia, approximately 200 beats per minute. She spontaneously broke to sinus rhythm. She has had no further dysrhythmias. She has had 2 days of chest pain. She is not having chest pain at this time. Her EKG now is with no acute ST-T abnormalities. Cardiac review of systems, she has the CVA as above. She has been stable from a bleeding standpoint since then with no further episodes of bleeding. She did not require surgery for that. She is followed by Dr. Corado and Oracio for that. She has not had cardiac intervention in the past. No bypass surgery or stenting. Negative for cancer, negative for any other bleeding problem, negative for congestive heart failure. PHYSICAL EXAMINATION: GENERAL APPEARANCE: Well-nourished, well-developed, appears stated age. Level of distress, comfortable. PSYCHIATRIC: Mental status, alert, normal affect. Orientation, oriented to time, place and person. EYES: Lids and conjunctiva, noninjected. No discharge, no pallor. ENT: Lips, teeth, gums, normal dentition. Oropharynx, no cyanosis, no pallor. NECK: Carotid arteries, bilateral normal upstroke, no bruits, no thrills. JUGULAR VEINS: No jugular venous pressure or distention. CERVICAL LYMPH NODES: Nontender, nonenlarged. THYROID: Not enlarged. Nontender. No nodules. LUNGS: Respiratory effort, unlabored. CHEST: Normal curvature. No thoracic deformity. No chest wall tenderness. Percussion, resonant. Auscultation, clear. No wheezes, no rales, no rhonchi. CARDIOVASCULAR: Precordial exam, nondisplaced. No heaves or pericardial thrills. Rate and rhythm, regular. Heart sounds, normal S1, normal S2. No S3, no gallop, no rub. Systolic murmur, not heard. Diastolic murmur, not heard. EXTREMITIES: No cyanosis, no edema. Peripheral pulses, full and equal in all extremities, except as noted. No bruits appreciated. ABDOMEN: Soft, nondistended. Normal aorta. No bruit. Nontender. No masses. Liver, nontender, no hepatomegaly. Spleen, nontender, no splenomegaly. MUSCULOSKELETAL: No joint tenderness. No joint swelling. No erythema. NEUROLOGICAL: Normal gait, normal strength, normal tone. SKIN: Warm and dry. HISTORY AND PHYSICAL [id number] SHREI MARIE OVERALL IMPRESSION: Angina with supraventricular tachycardia, most likely she has hemodynamically significant coronary artery disease. We will proceed with coronary angiography. We will load her with Plavix and aspirin, but we will make sure we give stent that only requires 30 days of Plavix due to her history of hemorrhagic cerebrovascular accident last February. TRANSINT:[id number] Voice Confirmation ID: [id number] DOCUMENT ID: [id number] ARSALAN CORONEL MD at 0926 CC: [id number] DICTATION DATE: 08/01/16 1704 CAPTAIN WAITER/WAITRESS: 08/01/16 1728 [facility] [address] [place] [address]
[2016-08-02 15:38] VITALS: BP 143/81
--- NOTE | 2016-08-02 18:51 | NUR ---
LYING QUIETY. LEFT GROING SOFT WITH DRSG DRY AND INTACT. TELEMERTY SHOWS S. OSUNA INTACT. FAMILY AT BEDSIDE
--- NOTE | 2016-08-02 19:40 | NUR ---
ASSESSMENT COMPLETE, AWAKE AND ALERT. BILATERAL GROIN DRSGS INTACT, NO SWELLING OR DRAINAGE NOTED. BILAT. PEDAL PULSES PRESENT. OSUNA DRAINING TO GRAVITY. STAT LOCK OFF, REPLACED TO RIGHT UPPER THIGH. PT DENIES PAIN OR NEEDS, BED LOW, CL IN REACH.
[2016-08-02 21:48] VITALS: BP 130/58
--- NOTE | 2016-08-02 23:30 | NUR ---
BRAND SALES CONSULTANT AT BEDSIDE FOR VS. NEEDS ADDRESSED AT THIS TIME. CALL LIGHT IN REACH. WILL CONT TO MONITOR.
[2016-08-03 01:50] VITALS: BP 101/47
--- NOTE | 2016-08-03 03:43 | NUR ---
RESTING WITH EYES CLOSED, RESPERATIONS EVEN, NO S/S DISTRESS NOTED.
[2016-08-03 05:52] VITALS: BP 115/89
[2016-08-03 08:23] VITALS: BP 130/63
--- NOTE | 2016-08-03 09:00 | NUR ---
INTRODUCED MYSELF TO PT PRIMARY RN FOR TODAYS SHIFT. AM MEDICATIONS GIVEN. SHIFT ASSESSMENT COMPLETED. PT HAS DRSGS IN BILAT GROINS CDI FROM INSPECTOR MISSILE NO S/S OF HEMATOMA OR BLEEDING NOTED, R.THIGH HAS MODERATE AMOUNT OF BRUISING NOTED. DR. CORONEL IS D/C PT THIS MORNING BUT WOULD LIKE HER LAB AND EKG DONE FIRST. WILL COMPLETE ORDERS. OSUNA D/C PER VERBAL ORDER OF , CATHETER BULB TIP FULLY INTACT. D/C TELEMETRY AND RETURNED TO [employer]. WILL CPOC.
--- NOTE | 2016-08-03 11:23 | NUR ---
EKG COMPLETED ORDERED ALONG WITH LAB DRAWN. D/C PAPERS BEING WORKED UP. PT IS GETTING DRESSED AND COLLECTING BELONGINGS. WILL CPOC.
[2016-08-03] MEDS ORDERED: PLAVIX75 MG PO (11:40)
[2016-08-03 11:42] VITALS: BP 123/69
--- NOTE | 2016-08-03 12:19 | NUR ---
DISCHARGE TEACHING PROVIDED AND PAPERS SIGNED. CALLED FOR W/C FOR PATIENT TO BE TRANSPORTED DOWN. DAUGHTER AT BEDSIDE TO DRIVE HER HOME. NO FURTHER QUESTIONS OR NEEDS.
--- NOTE | 2016-08-12 16:35 | OP ---
PATIENT NAME: SHERI PATRICK MEDICAL RECORD: [id number] :[birth year] LOCATION:[facility] ADMISSION DATE: SURGEON: ARSALAN CORONEL MD DATE OF OPERATION: 08/02/2016 PROCEDURES: 1. PTCA stent LAD. 2. Selective coronary angiography. INDICATION: Angina and coronary artery disease. PROCEDURE: After informed consent was obtained and after detailed explanation of risks, benefits as well as alternative therapies, the patient elected to proceed with angiogram and angioplasty. The left femoral area was prepped and draped in normal sterile fashion. Left femoral artery was cannulated via modified Seldinger technique with placement of 6-German sheath. All catheters exchanged through this sheath. FINDINGS: The left anterior descending has 80% heavily calcified stenosis proximally. This is a 10 mm lesion with TATIANA 3 flow in a 3.0 mm vessel. This was addressed with a 3.0 x 11 and 3.0 x 8 both BioFreedom stents. This was then post-stent dilatation made with a 3.5 balloon to 17 atmospheres. Result was 0% residual stenosis, TATIANA-3 flow. OVERALL IMPRESSION: Successful percutaneous transluminal coronary angioplasty stent of the left anterior descending going from 80% initial stenosis to 0% residual. TRANSINT:[id number] Voice Confirmation ID: [id number] DOCUMENT ID: [id number] ARSALAN CORONEL MD at 1635 CC: [id number] DICTATION DATE: 08/02/16 0917 APRON CLEANER: 08/02/16 1014 [facility] CLI 08/03/16 [place] [id number]
--- NOTE | 2016-08-12 16:36 | DS ---
PATIENT:SHERI MARIE :[birth year] MEDICAL RECORD: [id number] DISCHARGE SUMMARY ADMISSION DATE: 08/01/16 DISCHARGE DATE: 08/03/16 DISCHARGE DIAGNOSES: 1. Angina. 2. Coronary artery disease. 3. Percutaneous transluminal coronary angioplasty stent left anterior descending and right coronary artery this admission. 4. Supraventricular tachycardia secondary to ischemia. 5. Hyperlipidemia. HOSPITAL COURSE: Mrs. Marie presented with angina and supraventricular tachycardia. She was found to have 2-vessel coronary artery disease of the RCA and LAD, underwent successful PTCA stent of above territories, had no further angina and was discharged home with the addition of aspirin and Plavix to her medical regimen. We will follow up with [facility] in 1 month. TRANSINT:[id number] Voice Confirmation ID: [id number] DOCUMENT ID: [id number] ARSALAN CORONEL MD at 1636 CC: [id number] DICTATION DATE: 08/03/16 0852 REHABILITATION PSYCHOLOGIST: 08/04/16 0215 [facility] CLI 08/03/16 [place] [address] [place] [address]
--- NOTE | 2016-08-17 07:56 | OP ---
PATIENT NAME: SHERI PATRICK MEDICAL RECORD: [id number] :[birth year] LOCATION:[facility] ADMISSION DATE: SURGEON: ARSALAN CORONEL MD DATE OF OPERATION: 08/01/2016 PROCEDURES: 1. PTCA stent RCA. 2. Left heart catheterization. 3. Selective coronary angiography. 4. Left ventriculogram. INDICATION: Unstable angina. PROCEDURE IN DETAIL: After informed consent was obtained and after detailed explanation of risks, benefits as well as alternative therapies, the patient elected to proceed with angiogram and angioplasty. The right femoral area was prepped and draped in normal sterile fashion. The right femoral artery was cannulated via modified Seldinger technique with placement of 6-Italian sheath. All catheters exchanged through this sheath. FINDINGS: The left ventriculogram was performed in the standard 30-degree BERNSTEIN view, reveals preserved cardiac wall motion, ejection fraction 50%. SELECTIVE CORONARY ANGIOGRAPHY: 1. Left main is with no significant angiographic disease. 2. Left anterior descending has 80% stenosis proximally, otherwise moderate irregularities. 3. Left circumflex has moderate irregularities, but no flow-limiting stenosis. 4. Right coronary has a 95% stenosis in the mid vessel. PTCA STENT OF THE RIGHT CORONARY: The lesion was a 10-mm lesion and a 4.0 vessel at 95% stenosed. There was TATIANA 3 flow before and after, and stent used was a 4.0 x 14 mm BioFreedom stent. Result was 0% residual stenosis. OVERALL IMPRESSION: Successful percutaneous transluminal coronary angioplasty stent of the right coronary artery going from 95% initial stenosis to 0% residual stenosis. TRANSINT:[id number] Voice Confirmation ID: [id number] DOCUMENT ID: [id number] ARSALAN CORONEL MD at 0756 CC: [id number] DICTATION DATE: 08/15/16 1229 CALCULATION CLERK: 08/15/16 1653 [facility] CLI 08/03/[address] [address]
== END 2016-08-03 12:22 | disposition home or self-care (01) ==
LOC: D.M2 10:57 → D.ER 10:57 → D.OPS 10:57 → EDSTATUS 14:50 → D.M2 14:51 → D.OPS 08-03 12:22
PROVIDERS: Emergency Medicine; Internal Medicine Interventional Cardiology
DX: I25.119 Atherosclerotic heart disease of native coronary artery with unspecified angina pectoris (principal); Z00.6 Encounter for examination for normal comparison and control in clinical research program; Z86.73 Personal history of transient ischemic attack (TIA), and cerebral infarction without residual deficits; I47.1 Supraventricular tachycardia; I10 Essential (primary) hypertension; E78.5 Hyperlipidemia, unspecified; G20 Parkinson's disease; Z01.812 Encounter for preprocedural laboratory examination
CPT/HCPCS: 93458; C9600 ×2

== ENCOUNTER 2016-09-16 10:24 | Inpatient (IN) | payer MEDICARE, BC ==
[~2016-09-16] VITALS: Ht 162.6 cm; Wt 62.7 kg
[~2016-09-16 10:24] MED LIST changes: +ACETAMINOPHEN325 MG PO; +BAYER CHEWABLE81 MG PO; +CELEXA20 MG PO; +CHILDREN'S CLARI5 MG PO; +MECLIZINE HCL25 MG PO; +MELATONIN 3 MG1 TAB PO; +OMEPRAZOLE20 M1 PO; +SENNA PLUS TA1 UDTAB PO; +ULTRAM50 MG PO
[2016-09-16 12:41] LABS: HEMATOCRIT 31.9 % (36.0-48.0); HEMOGLOBIN 10.4 g/dL (12-16); MCH 30.2 pg (26.0-34.0); MCHC 32.6 g/dL (31.0-37.0); MCV 92.7 fL (80.0-100.0); MEAN PLATELET VOLUME 10.1 fL (7.4-10.4); PLATELET COUNT 164 10x3/uL (130-400); RBC 3.44 10x6/uL (4.00-5.40); RDW 14.1 % (11.5-14.5); WBC 20.2 10x3/uL (4.8-10.8)
[2016-09-16 12:45] LABS: APPEARANCE HAZY (CLEAR); BACTERIA MANY /hpf (NONE SEEN); BILIRUBIN NEGATIVE (NEGATIVE); COLOR YELLOW (YELLOW); EPITHELIAL CELLS 0-5 /hpf (0-5); GLUCOSE NEGATIVE (NEGATIVE); KETONE NEGATIVE (NEGATIVE); LEUKOCYTE ESTERASE TRACE (NEGATIVE); NITRITE NEGATIVE (NEGATIVE); PROTEIN NEGATIVE (NEGATIVE); RED CELLS - URINE OCC /hpf (0-5); UROBILINOGEN NORMAL (NORMAL)
[2016-09-16 12:56] LABS: ALBUMIN 3.3 g/dL (3.4-5.0); ANION GAP 14.1 mmol/L (8-16); BILIRUBIN - TOTAL 0.67 mg/dL (0.2-1.3); CALCIUM 8.6 mg/dL (8.5-10.1); CREATININE - SERUM 1.4 mg/dL (0.6-1.3); POTASSIUM - SERUM 4.1 mmol/L (3.5-5.1); PROTEIN - SERUM 6.7 g/dL (6.4-8.2)
[2016-09-16 12:57] LABS: LYMPHOCYTES 4 % (15-50); MONOCYTES 2 % (2-11); NEUTROPHILS 90 % (40-80); PLATELET ESTIMATE NORMAL
[2016-09-16 13:05] LABS: THYROID STIMULATING HORMONE 0.91 uIU/mL (0.36-3.74)
--- NOTE | 2016-09-16 15:42 | NUR ---
RECEIVED TO ROOM 2203 AT THIS TIME FROM THE ER VIA STRETCHER. DAUGHTER AT BEDSIDE. WILL CONTINUE WITH PLAN OF CARE.
[2016-09-16 17:09] LABS: % SATURATION 6 % (15-55); IRON 22 ug/dl (35-150); TOTAL IRON BIND CAPACITY 360 ug/dl (260-445); UNSAT IRON BIND CAPACITY 338 ug/dl (150-375)
[2016-09-16] MEDS ORDERED: SINEMET 25-1001 EACH PO (17:30)
[2016-09-16] MEDS ORDERED: FLUTICASONE PRO16 GM NASAL (17:32)
[2016-09-16] MEDS ORDERED: [UNRECOGNIZED DRUG - OTHER] PO (17:37)
[2016-09-16 18:04] VITALS: BP 122/64; Ht 162.6 cm; Wt 62.7 kg
--- NOTE | 2016-09-16 19:30 | NUR ---
PT. IN BED WITH HOB UP FOR COMFORT AND IS VISITING WITH DAUGHTER. PT. CONFUSED AND ONLY ORIENTED TO SELF. ASSESSMENT COMPLETED. IV INFUSING VIA PUMP TO LEFT AC OF NS @ 100CC/HR. CALL LIGHT WITHIN REACH. DAUGHTER STAYING THE NIGHT TONIGHT.
[2016-09-16 20:00] VITALS: BP 111/63
--- NOTE | 2016-09-16 20:49 | NUR ---
PT'S IV SITE BLOODY. WHEN ASSESSED SITE HAS BEEN PULLED OUT BY PT., DAUGHTER REPORTS PT. WAS PICKING AND PULLING AT IT JUST A LITTLE BIT AGO. IV D/C'D AND WILL BE RESITED ONCE PT. HAS RETURNED FROM CT.
--- NOTE | 2016-09-16 23:19 | NUR ---
NEW PERIPHERAL IV STARTED IN RT. FOREARM X 1 ATTEMPT WITH 22GA ANGIO. PT. DENIES ANY C/O AND IV RESTARTED BACK AT 100CC/HR VIA PUMP OF N.S. CALL LIGHT REMAINS WITHIN REACH AND DAUGHTER REMAINS IN THE ROOM WITH PT.
[2016-09-17 00:11] VITALS: BP 132/60
[2016-09-17 04:00] VITALS: BP 101/61
[2016-09-17 04:58] LABS: BASOPHILS 0.1 % (0-2); EOSINOPHILS 0.4 % (0-7); HEMATOCRIT 28.4 % (36.0-48.0); HEMOGLOBIN 9.4 g/dL (12-16); IMMATURE GRANULOCYTES 0.2 % (0-5); LYMPHOCYTES 14.5 % (15-50); MCH 30.8 pg (26.0-34.0); MCHC 33.1 g/dL (31.0-37.0); MCV 93.1 fL (80.0-100.0); MEAN PLATELET VOLUME 10.5 fL (7.4-10.4); MONOCYTES 7.8 % (2-11); PLATELET COUNT 142 10x3/uL (130-400); RBC 3.05 10x6/uL (4.00-5.40); RDW 14.2 % (11.5-14.5); WBC 12.1 10x3/uL (4.8-10.8)
[2016-09-17 05:16] LABS: ALBUMIN 2.8 g/dL (3.4-5.0); ANION GAP 13.5 mmol/L (8-16); BILIRUBIN - TOTAL 0.49 mg/dL (0.2-1.3); CALCIUM 8.3 mg/dL (8.5-10.1); CARBON DIOXIDE 23.3 mmol/L (21.0-32.0); POTASSIUM - SERUM 3.8 mmol/L (3.5-5.1)
--- NOTE | 2016-09-17 06:41 | NUR ---
PT. IN BED WITH HOB UP FOR COMFORT AND DAUGHTER REMAINS AT BEDSIDE. NO VOICED NEEDS AND CALL LIGHT WITHIN REACH. RT. FA IV INFUSING VIA PUMP WITHOUT ANY ALARMS OF NS AT 100/HR.
--- NOTE | 2016-09-17 08:30 | NUR ---
AWAKE AND ALERT. ORIENTED TO SELF. ATTEMPTS TO REORIENT PER STAFF WITHOUT SUCCESS. LUNGS ARE CLEAR BILATERALLY, NO COUGH NOTED. SKIN IS INTACT WITHOUT REDNESS WITH LARGE BRUISE NOTED TO LEFT HIP AREA. IV TO RIGHT FOREARM IS PATENT WITHOUT REDNESS AT INSERTION SITE. UP TO BR WITH 2 PERSON ASSIST. VOIDED SMALL AMOUNT OF URINE. SKIN CARE PER SELF. REPOSITIONED IN BED FOR COMFORT. SCD'S IN PLACE.
[2016-09-17 08:59] VITALS: BP 107/77
--- NOTE | 2016-09-17 10:44 | NUR ---
ATE ABOUT HALF OF BREAKFAST PER DAUGHTER WHO ATE THE REST. NO C/O AT THIS TIME. DENIES NEEDS.
--- NOTE | 2016-09-17 12:30 | NUR ---
LUNCH SERVED IN ROOM. DAUGHTER ASSISTED WITH MEAL. ATE VERY LITTLE. DENIES NEEDS.
--- NOTE | 2016-09-17 12:35 | NUR ---
Rehab Note-Acute Rehab Prescreen order received. Awaiting Physical therapy eval to assess the patient's functional mobility. Will follow the patient at this time. Thank you for this referral! Amelie Sawyer RN Clinical Liaison, [facility] Re[facility]
[2016-09-17 13:59] VITALS: BP 129/52
--- NOTE | 2016-09-17 15:00 | NUR ---
UP TO BR WITH STAFF ASSIST AND USING RW. VOIDED WITHOUT DIFFICULTY.
[2016-09-17 17:43] VITALS: BP 111/69
--- NOTE | 2016-09-17 18:23 | NUR ---
ATE ABOUT HALF OF SUPPER. DENIES NEEDS. GOWN CHANGED PER STAFF. NO CHANGES NOTED.
[2016-09-17 20:00] VITALS: BP 150/81
[2016-09-18] VITALS: BP 143/76
--- NOTE | 2016-09-18 04:32 | NUR ---
PATIENT RESTING WITH EYES CLOSED AND NO VISIBLE SIGNS OF DISTRESS. BED IN LOWEST POSITION AND CALL LIGHT WITHIN REACH.
[2016-09-18 07:14] LABS: BASOPHILS 0.2 % (0-2); EOSINOPHILS 0.4 % (0-7); HEMATOCRIT 26.3 % (36.0-48.0); HEMOGLOBIN 8.6 g/dL (12-16); IMMATURE GRANULOCYTES 0.2 % (0-5); LYMPHOCYTES 18.9 % (15-50); MCH 30.4 pg (26.0-34.0); MCHC 32.7 g/dL (31.0-37.0); MCV 92.9 fL (80.0-100.0); MEAN PLATELET VOLUME 10.8 fL (7.4-10.4); MONOCYTES 9.6 % (2-11); NEUTROPHILS 70.7 % (40-80); PLATELET COUNT 134 10x3/uL (130-400); RBC 2.83 10x6/uL (4.00-5.40); RDW 14.2 % (11.5-14.5)
[2016-09-18 07:29] LABS: ALBUMIN 2.5 g/dL (3.4-5.0); ANION GAP 13.9 mmol/L (8-16); BILIRUBIN - TOTAL 0.37 mg/dL (0.2-1.3); CALCIUM 7.7 mg/dL (8.5-10.1); CREATININE - SERUM 0.8 mg/dL (0.6-1.3); POTASSIUM - SERUM 3.9 mmol/L (3.5-5.1); PROTEIN - SERUM 5.5 g/dL (6.4-8.2)
--- NOTE | 2016-09-18 07:48 | NUR ---
RESTING WITH EYES CLOSED. ORIENTED TO SELF ONLY. ATTEPTS TO REORIENT WITHOUT SUCCESS. LUNGS ARE CLEAR BILATERALLY, OCCASSIONAL DRY COUGH NOTED. SKIN IS INTACT WITHOUT REDNESS, BRUISE TO LEFT BUTTOCK NOTED. IV TO RIGHT WRIST IS PATENT WITHOUT REDNESS AT INSERTION SITE. DENIES NEEDS. SCD'S IN PLACE. VERENA MAT FUNCTIONAL.
[2016-09-18 09:02] VITALS: BP 140/72
--- NOTE | 2016-09-18 12:02 | NUR ---
UP TO BR WITH ONE PERSON ASSIST. VOIDED WITHOUT DIFFICULTY AND HAD LARGE SOFT LIGHT BROWN BM. SKIN CARE PER SELF. REPOSITIONED IN BED FOR COMFORT.
[2016-09-18 12:44] VITALS: BP 169/90
--- NOTE | 2016-09-18 14:38 | NUR ---
WORKING WITH PT IN ROOM. WAS UP TO BR AGAIN BUT MISSED THE HAT WHEN SHE VOIDED. DENIES NEEDS.
--- NOTE | 2016-09-18 16:00 | NUR ---
UP TO BR WITH ONE PERSON ASSIST. VOIDED WITHOUT DIFFICULTY. REPOSITIONED IN BED FOR COMFORT.
--- NOTE | 2016-09-18 16:27 | NUR ---
Rehab Note- Visited with the patient. States "I'm confused", does know her name and where she is. She is interested in [facility] IRF, states she's been weak and falling. Will continue to monitor at this time. Thank you for this referral! Amelie Sawyer RN Clinical Liaison, [facility] Rehab
--- NOTE | 2016-09-18 16:45 | NUR ---
HAD EPISODE OF NOT BEING ABLE TO BREATHE. COLOW WNL. O2 SAT 88-89% ON RA. O2@2L NC PLACED. SATS UP TO 95% ON O2. DAUGHTER IN ROOM. WILL CONTINUE TO MONITOR.
[2016-09-18 17:19] VITALS: BP 184/119
[2016-09-18 18:06] LABS: % SATURATION 5 % (15-55); IRON 14 ug/dl (35-150); TOTAL IRON BIND CAPACITY 254 ug/dl (260-445); UNSAT IRON BIND CAPACITY 240 ug/dl (150-375)
[2016-09-18 20:00] VITALS: BP 173/95
--- NOTE | 2016-09-18 20:00 | NUR ---
REC'D IN BED AWAKE AND ALERT TO SELF ONLY. RESP EVEN AND UNLABORED WITH NO DISTESS NOTED. HAS O2 IN USE VIA N/C. NO C/O NOTED OR VOICED. ASSESSMENT COMPLETED C/L IN REACH AT BEDSIDE.
--- NOTE | 2016-09-18 21:00 | NUR ---
REC'D IN BED ALERT TO SELF ONLY. RESP EVEN AND UNLABORED WITH NO DISTRESS NOTED. NO C/O NOTED AT THIS TIME. ASSISTANCE GIVEN TO BSC. ASSESSMENT COMPLETED. C/L IN REACH AT BEDSIDE.
[2016-09-19] VITALS: BP 149/80
--- NOTE | 2016-09-19 02:00 | NUR ---
PT IN BED WITH NO DISTRESS. RESPIRATIONS EVEN AND UNLABORED. VISITOR AT BEDSIDE. SIDE RAILS X 2. BED IS LOW. CALL LIGHT IS IN REACH.
[2016-09-19 04:00] VITALS: BP 180/75
[2016-09-19 06:21] LABS: BASOPHILS 0.1 % (0-2); EOSINOPHILS 0.4 % (0-7); HEMATOCRIT 29.1 % (36.0-48.0); HEMOGLOBIN 9.5 g/dL (12-16); IMMATURE GRANULOCYTES 0.3 % (0-5); LYMPHOCYTES 17.5 % (15-50); MCH 30.4 pg (26.0-34.0); MCHC 32.6 g/dL (31.0-37.0); MCV 93.3 fL (80.0-100.0); MEAN PLATELET VOLUME 10.7 fL (7.4-10.4); MONOCYTES 8.6 % (2-11); NEUTROPHILS 73.1 % (40-80); PLATELET COUNT 151 10x3/uL (130-400); RBC 3.12 10x6/uL (4.00-5.40); RDW 14.2 % (11.5-14.5); WBC 9.4 10x3/uL (4.8-10.8)
[2016-09-19 06:24] LABS: APPEARANCE CLEAR (CLEAR); BILIRUBIN NEGATIVE (NEGATIVE); COLOR YELLOW (YELLOW); GLUCOSE NEGATIVE (NEGATIVE); KETONE SMALL mg/dL (NEGATIVE); LEUKOCYTE ESTERASE NEGATIVE (NEGATIVE); NITRITE NEGATIVE (NEGATIVE); PROTEIN NEGATIVE (NEGATIVE); UROBILINOGEN NORMAL (NORMAL)
[2016-09-19 06:27] LABS: INR 1.17 (0.85-1.17); PROTIME 14.8 SECONDS (11.6-15.0)
[2016-09-19 06:39] LABS: ALBUMIN 2.8 g/dL (3.4-5.0); ANION GAP 12.5 mmol/L (8-16); BILIRUBIN - TOTAL 0.5 mg/dL (0.2-1.3); CALCIUM 7.6 mg/dL (8.5-10.1); CARBON DIOXIDE 20.9 mmol/L (21.0-32.0); CREATININE - SERUM 0.9 mg/dL (0.6-1.3); POTASSIUM - SERUM 3.4 mmol/L (3.5-5.1); PROTEIN - SERUM 6.2 g/dL (6.4-8.2)
--- NOTE | 2016-09-19 08:12 | NUR ---
PT SEEN AND ASSESED. FAMILY AT BEDSIDE. NO COMPLAINTS AT PRESENT. STATES HAD SOME SLEEP DURING THE NIGHT. VERENA ALARM ON AND ACTIVE. NON SKID SOCKS ON BILAT. CALL LIGHT IN REACH
[2016-09-19 08:26] VITALS: BP 131/79
[2016-09-19 11:13] LABS: FOLATE (FOLIC ACID) - SERUM 4.9 ng/mL (>3.0)
[2016-09-19] MEDS ORDERED: NORVASC5 MG PO (11:16)
[2016-09-19] MEDS ORDERED: ROCEPHIN 1 GM/D51 G1 IV (11:16)
[2016-09-19] MEDS ORDERED: SINEMET 25-1001 EACH PO (11:17)
[2016-09-19] MEDS ORDERED: ACETAMINOPHEN325 MG PO (11:17)
[2016-09-19 12:26] VITALS: BP 129/85
--- NOTE | 2016-09-19 17:19 | NUR ---
REPORT CALLED TO FOUZIA. WILL MOVE AFTER DINNER WHICH IS HERE NOW
--- NOTE | 2016-09-19 17:48 | NUR ---
Is the patient Alert and Oriented? Yes 0 * PCP DR Christensen 0 * Pharmacy [facility] 0 * Preadmission Environment Assisted Living 0 * Facility Name [facility] assisted living [facility] 0 * ADLs Independent 0 * Equipment None 0 * Other Equipment None 0 * List name and contact numbers for known caregivers / representatives who currently or will assist patient after discharge: Viki Recinos-- daughter - [phone] Sherry Briceno-daughter- [phone]. Lives out of town 0 * Community resources currently utilized Assisted Living 0 * Please name any agencies selected above. name as above [facility] 0 * Additional services required to return to the preadmission environment? No 0 * Can the patient safely return to the preadmission environment? Yes 0 * Has this patient been hospitalized within the prior 30 days at any hospital? No 0
--- NOTE | 2016-09-19 18:04 | NUR ---
Met w/ the patient and her daughter, Sherry Briceno, at the bedside. The patient had just returned from the bathroom. She is pale and short of breath. The daughter states she had nasal oxygen placed just yesterday for the same. The patient is not on oxygen at home. No nebulizers or MDI's. Patient lives at [facility] in [place]. DR Christensen is her primary since she has been at [facility]. She hopes to return to her assisted living unit post discharge from acute rehab. She will transfer to [facility] this PM. Her daughter, Sherry Briceno, from [place] is at the bedside. Viki Recinos is the daughter who lives in [place]. Pharmacy- [facility] in [place]. Patient will have transportation to home. her daughter is bringing her clothing for rehab. CM allowed patient to rest as she is giving 1-2 word answers due to shortness of breath. CM reported to patient's primary nurse, Vivian, the respiratory issue.
== END 2016-09-19 18:09 | DRG 690 ==
LOC: D.ER 10:24 → D.MS 13:23
PROVIDERS: Emergency Medicine; Family Medicine; Internal Medicine Hematology & Oncology; ADMIT Family Medicine Adult Medicine
DX: N39.0 Urinary tract infection, site not specified (principal); E78.5 Hyperlipidemia, unspecified; I25.10 Atherosclerotic heart disease of native coronary artery without angina pectoris; R53.1 Weakness; D64.9 Anemia, unspecified; Z86.73 Personal history of transient ischemic attack (TIA), and cerebral infarction without residual deficits

== ENCOUNTER 2016-09-19 19:38 | Inpatient (IN) | payer MEDICARE, BC ==
[~2016-09-19] VITALS: Ht 162.6 cm; Wt 68.9 kg
[~2016-09-19 19:38] MED LIST changes: +FLUTICASONE PRO16 GM NASAL; +ROCEPHIN 1 GM/D51 G1 IV; +SINEMET 25-1001 EACH PO; +[UNRECOGNIZED DRUG - OTHER] PO
--- NOTE | 2016-09-19 21:30 | NUR ---
REC'D CALL FROM TELEMETRY PTA THAT PT HAD A RUN OF VTACH, PT DENIES PALPITATIONS, CHEST PAIN, NUMBNESS IN HANDS. PT STATES SHE IS FEELING JUST FINE, LEFT VM FOR DR. BRANCH.
--- NOTE | 2016-09-20 00:05 | NUR ---
PT CRAWLING OUT OF SIDE OF BED, FOUND SALINE LOCK IN BED DISLODGED FROM PATIENT, NO ACTIVE BLEEDING, PT RESPIRATIONS LABORED, AUDIBLE WHEEZING, PT STATES SHE HAS TO GO TO BATHROOM.
[2016-09-20 00:14] VITALS: BP 134/74; BMI 26.1
--- NOTE | 2016-09-20 01:00 | NUR ---
PT PULLED OUT RIGHT FA IV. INSERTED 22 GAUGE IN THE LEFT FA ON SECOND ATTEMPT. ASEPTIC TECHNIQUE. PT TOLERATED WELL.
--- NOTE | 2016-09-20 02:00 | NUR ---
PT STATED SHE NEEDED TO VOID, ASSISTED TO BATHROOM, PT STATES SHE VOID, BUT NO VISUAL OR AUDIO SIGNS OF VOIDING.
--- NOTE | 2016-09-20 03:30 | NUR ---
PT STANDING ON SIDE OF BED WITHOUT GOWN AND REMOVING AND REPLACING HER TELEMETRY ELECTRODES, PT STATES SHE KNOWS WHERE SHE IS, BUT IS UNABLE TO STATE WHERE SHE IS. AFTER MORE CONVERSATION SHE IS ABLE TO ARTICULATE SHE IS IN REHAB. ASSISTED PT TO BATHROOM, PT NEEDS EXTRA TIME TO INITIATE VOID, REAPPLIED TELEMETRY ELECTRODES.
[2016-09-20 07:00] LABS: BASOPHILS 0.1 % (0-2); EOSINOPHILS 1.3 % (0-7); HEMATOCRIT 26.9 % (36.0-48.0); HEMOGLOBIN 8.9 g/dL (12-16); IMMATURE GRANULOCYTES 0.4 % (0-5); LYMPHOCYTES 19.7 % (15-50); MCHC 33.1 g/dL (31.0-37.0); MCV 93.7 fL (80.0-100.0); MEAN PLATELET VOLUME 11.1 fL (7.4-10.4); MONOCYTES 9.8 % (2-11); NEUTROPHILS 68.7 % (40-80); PLATELET COUNT 152 10x3/uL (130-400); RBC 2.87 10x6/uL (4.00-5.40); RDW 14.3 % (11.5-14.5); WBC 7.5 10x3/uL (4.8-10.8)
--- NOTE | 2016-09-20 07:15 | NUR ---
LYING IN BED EYES CLOSED RESTING QUIELTY. CALL LIGHT IN REACH.
[2016-09-20 07:19] LABS: CALC OSMOLALITY 274 mosm/kg (275-300); CARBON DIOXIDE 22.8 mmol/L (21.0-32.0); CHLORIDE - SERUM 105 mmol/L (98-107); CREATININE - SERUM 0.7 mg/dL (0.6-1.3); GLUCOSE 124 mg/dL (74-106); POTASSIUM - SERUM 3.4 mmol/L (3.5-5.1); SODIUM 138 mmol/L (136-145); UREA NITROGEN 7 mg/dL (7-18); eGFR NON AFRICAN AMERICAN 83 mL/min (90-120)
[2016-09-20 07:30] VITALS: BP 135/68
--- NOTE | 2016-09-20 09:20 | NUR ---
SITTING UP IN WHEELCHAIR, ALERT AND ORIENTED X2, REORIENTED TO PLACE. CALL LIGHT IN REACH.
--- NOTE | 2016-09-20 11:26 | NUR ---
PATIENT ADMITTED TO REHAB FROM ACUTE FLOOR, SHE RESIDES AT [facility] IN [place]. SHE USES [facility]. SHE HAS NO DME AT HOME. DR. FREEDMAN IS HER PCP. SHE HAS A DAUGHTER THAT LIVES IN [place] AND WILL TRANSPORT HER HOME WHEN DISCHARGED. WILL CONTINUE TO FOLLOW WITH PATIENT
--- NOTE | 2016-09-20 11:30 | NUR ---
LYING IN BED HOB 45 DEGREES. EYES CLOSED RESTING QUIETLY. EASILY AROUSED WITH VERBAL STIMULI. CALL LIGHT AND BEDSIDE TABLE IN REACH.
[2016-09-20 12:23] VITALS: Ht 162.6 cm; Wt 68.9 kg
--- NOTE | 2016-09-20 14:35 | NUR ---
PT IN THERAPY
--- NOTE | 2016-09-20 16:09 | NUR ---
SITTING UP IN BED READING BOOK QUIETLY. NO CONCERNS VOICED AT THIS TIME. CALL LIGHT AND BEDSIDE TABLE IN REACH.
--- NOTE | 2016-09-20 17:00 | NUR ---
PT VISITING WITH FAMILY
--- NOTE | 2016-09-20 18:06 | NUR ---
SITTING UP IN WHEELCHAIR VISITING WITH FAMILY. ON 3L O2 VIA NASAL CANULA NO S/SX OF RESPIRATORY DISTRESS. CALL LIGHT IN REACH
[2016-09-20 20:00] VITALS: BP 135/75
--- NOTE | 2016-09-20 20:20 | NUR ---
ASSISTED PT TO BATHROOM AND BACK TO BED.
--- NOTE | 2016-09-21 01:13 | NUR ---
REST QUIETY IN BED, EYE CLOSE, BED LOW, CALL LIGHT WITHIN REACH.
--- NOTE | 2016-09-21 03:50 | NUR ---
RESTING QUIETLY IN BED, EYES CLOSED.
--- NOTE | 2016-09-21 07:10 | NUR ---
LYING IN BED EYES CLOSED RESTING QUIELTY. EASILY AROUSED TO VERBAL STIMULI. STILL ON 3L O2 VIA NASAL CANULA. CALL LIGHT IN REACH
[2016-09-21 07:30] LABS: BASOPHILS 0.3 % (0-2); EOSINOPHILS 2.4 % (0-7); HEMATOCRIT 26.7 % (36.0-48.0); HEMOGLOBIN 8.8 g/dL (12-16); IMMATURE GRANULOCYTES 0.6 % (0-5); MCH 30.9 pg (26.0-34.0); MCV 93.7 fL (80.0-100.0); MEAN PLATELET VOLUME 10.5 fL (7.4-10.4); MONOCYTES 9.5 % (2-11); NEUTROPHILS 60.2 % (40-80); PLATELET COUNT 179 10x3/uL (130-400); RBC 2.85 10x6/uL (4.00-5.40); RDW 14.5 % (11.5-14.5); WBC 7.1 10x3/uL (4.8-10.8)
[2016-09-21 07:57] LABS: ANION GAP 14.3 mmol/L (8-16); CALCIUM 8.3 mg/dL (8.5-10.1); CARBON DIOXIDE 22.5 mmol/L (21.0-32.0); CREATININE - SERUM 0.8 mg/dL (0.6-1.3)
[2016-09-21 08:00] LABS: POTASSIUM - SERUM 2.8 mmol/L (3.5-5.1)
[2016-09-21 09:11] VITALS: BP 124/60
--- NOTE | 2016-09-21 09:30 | NUR ---
ASSISTED TO RESTROOM WITH MINIMAL ASSIST. S/SX RESP DISTRESS WITHOUT OXYGEN FOR SHORT PERIOD OF TIME. NOTIFIED RESPIRATORY IN NEED OF LONGER TUBING IN ORDER TO REACH RESTROOM. RESPIRATORY ADMINISTERED UPDRAFT. CALL LIGHT IN REACH
--- NOTE | 2016-09-21 11:30 | NUR ---
IN GYM WITH OCCUPATIONAL THERAPY
--- NOTE | 2016-09-21 13:30 | NUR ---
RESTING QUIETLY.CL IN REACH.
--- NOTE | 2016-09-21 13:30 | NUR ---
SITTING UP IN WHEELCHAIR VISITING WITH FAMILY. OXYGEN IN PLACE 3L VIA NASAL CANULA. NO S/SX OF RESPIRATORY DISTRESS, CALL LIGHT IN REACH
--- NOTE | 2016-09-21 15:14 | NUR ---
IN ROOM WITH PHYSICAL THERAPY (CECIL) TOLERATING WELL. NO S/SX OF RESPIRATORY DISTRESS.
--- NOTE | 2016-09-21 17:08 | NUR ---
LYING IN BED EYES CLOSED RESTING QUIELTY. OXYGEN ON 3L VIA NASAL CANULA. CALL LIGHT IN REACH.
--- NOTE | 2016-09-21 19:15 | NUR ---
PM ROUNDS MADE, PT RESTING WITH EYES CLOSED, LEFT UNDISTURBED AT THIS TIME
[2016-09-21 20:00] VITALS: BP 149/79
--- NOTE | 2016-09-21 20:00 | NUR ---
ASSESSMENT PER FLOW SHEET, VS OBTAINED, IV IN LEFT WRIST INTACT, PT UP TO BR VIA WC WITH ASSISTANCE, VOIDED BY SELF WITH NO DIFFICULTY, PT BACK TO BED, REQUESTED AND PROVIDED CUP OF ICE FOR COKE, DENIES FURTHER NEEDS
--- NOTE | 2016-09-21 21:10 | NUR ---
SALINE LOCK CONVERTED TO IV, ADM 2100 MEDS PER MD ORDERS SEE EMAR
--- NOTE | 2016-09-21 21:20 | NUR ---
PT C/O IV HURTING, FLUIDS STOPPED, INFORMED PT THAT I WILL HAVE TO RESTART THE IV, PT VERBALIZES UNDERSTANDING
--- NOTE | 2016-09-21 22:35 | NUR ---
SALINE LOCK REMOVED, TIP INTACT, PRESSURE HELD, BANDAID APPLIED, ATTEMPTED IV START X 2 WITH NO SUCCESS, INFORMED PT THAT I WILL HAVE ANOTHER NURSE TRY, PT VERBALIZES UNDERSTANDING, BED IN LOW POSITION, SIDE RAILS X 2, CALL LIGHT IN REACH, BED ALARM ON AND WORKING PROPERLY
--- NOTE | 2016-09-21 23:10 | NUR ---
ALEX LEYVA RN FROM L&D TO ROOM FOR IV START, STARTED ON 2ND ATTEMPT, 22 GAUGE TO RIGHT HAND, FLUSHES WELL, ROCEPHIN RESTARTED, PT UP TO BR VIA WC WITH ASSISTANCE, PT VOIDED, PT BACK TO BED, POSITIONED SELF, PT DENIES FURTHER NEEDS, BED IN LOW POSITION, SIDE RAILS X 2, CALL LIGHT IN REACH, BED ALARM ON AND WORKING PROPERLY
--- NOTE | 2016-09-22 00:30 | NUR ---
IV CONVERTED TO SALINE LOCK, PT DENIES NEEDS AT THIS TIME
--- NOTE | 2016-09-22 02:08 | NUR ---
PT RESTING WITH EYES CLOSED, RESP QUIET, NO DISTRESS NOTED, LEFT UNDISTURBED AT THIS TIME, BED IN LOW POSITION, SIDE RAILS X 2, CALL LIGHT IN REACH, BED ALARM ON AND WORKING PROPERLY
--- NOTE | 2016-09-22 04:05 | NUR ---
PT RESTING WITH EYES CLOSED, RESP QUIET, NO DISTRESS NOTED, LEFT UNDISTURBED AT THIS TIME
--- NOTE | 2016-09-22 05:15 | NUR ---
PT QA INTERN LIGHT, PT UP TO BR VIA WC, PT TO COMMODED, VOIDED BY SELF WITH NO DIFFICULTY, ADULT GARMENT CHANGED, PAJAMA BOTTOMS ON, PT BACK TO BED, DENIES FURTHER NEEDS, BED IN LOW POSITION, SIDE RAILS X 2, CALL LIGHT IN REACH, BED ALARM ON AND WORKING PROPERLY
--- NOTE | 2016-09-22 06:32 | NUR ---
RESP TO ROOM FOR TREATMENT
--- NOTE | 2016-09-22 07:00 | NUR ---
SHIFT REPORT TO DAY SHIFT
--- NOTE | 2016-09-22 07:15 | NUR ---
LYING IN BED EYES CLOSED RESTING QUIETLY. EASILY AROUSED TO VERBAL STIMULI. OXYGEN STILL ON 3L VIA NC. CALL LIGHT IN REACH.
--- NOTE | 2016-09-22 08:56 | RHP ---
PATIENT: SHERI PATRICK MEDICAL RECORD: [id number] ACCOUNT: [id number] [facility] : [birth year] ADMISSION DATE: 09/19/16 REHABILITATION HISTORY AND PHYSICAL EXAMINATION POST ADMISSION PHYSICIAN EXAMINATION Post-admission Physical Examination and History and Physical DATE OF ADMISSION: 09/19/2016 ADMITTING DIAGNOSES: Debility with fatigue, malaise and falls secondary to urinary tract infection caused by Escherichia coli. HISTORY OF PRESENT ILLNESS: The patient is admitted to inpatient rehab with debility, fatigue, malaise and falls secondary to UTI. She is an 89-year-old female patient who presented to the ED with falls, weakness, malaise and fatigue. She lives at [facility] in [place]. She has some chronic arthritic pain. She was found to have a UTI, was anemic. She was moderate independent with mobility and moderate independent with ADLs prior hospitalization. She currently have periods of confusion and set for max assist with her ADLs and max assist with her mobility. Today, she was placed on oxygen at 2 liters via nasal cannula due to her decreased pulse ox. Plan is to return back to her assisted living, hopefully we will get back to her prior level of functioning or improved if possible. COMORBIDITIES: Include general cerebral atrophy, encephalomalacia, UTI, weakness, falls, leukocytosis, anemia, chronic subarachnoid hemorrhage, history of CVA, hyperlipidemia, TIA, has coronary artery disease, psoriasis and malaise. PAST MEDICAL HISTORY: Significant for TIA, cataract, hypertension, skin cancer, hyperlipidemia, coronary artery disease, CVA, iron deficiency anemia, breast cancer and psoriasis. PAST SURGICAL HISTORY: Includes hysterectomy, tonsillectomy and lumpectomy. ALLERGIES: APPLES, STRAWBERRIES, SULFA DRUGS AND PHENOBARBITAL. CURRENT MEDICATIONS: Include Floranex daily, amlodipine 5 mg daily, she is on an electrolyte replacement protocol at this time, she is on albuterol updrafts as needed, senna 2 tabs at bedtime, Protonix 40 mg daily, melatonin 3 mg at bedtime, Flonase nasal spray as needed, citalopram 20 mg at bedtime, Rocephin 1 g IV q.24 hours, she is on Sinemet 25/100 one-half tablet at bedtime and Tylenol p.r.n. elevated temperature. HABITS: No alcohol or tobacco use. FAMILY HISTORY: Noncontributory. SOCIAL HISTORY: The patient hopes to return back to [place], back to her assisted living. REVIEW OF SYSTEMS: GENERAL: She does complain of weakness. HEENT: Denies cold, cough, or congestion. CARDIOVASCULAR: Denies chest pain. HISTORY AND PHYSICAL [id number] SHERI PATRICK PHYSICAL EXAMINATION: VITAL SIGNS: Stable, afebrile. GENERAL: Elderly female in no acute distress upon exam. HEENT: Normocephalic and atraumatic. Mucosa is moist. TMs appear shiny and mobile. NECK: Supple. No lymphadenopathy. LUNGS: Clear. HEART: Regular rate and rhythm. ABDOMEN: Benign. EXTREMITIES: No clubbing, cyanosis, or edema. NEUROLOGICAL: Slow to mentate and noted weakness. LABORATORY DATA: Her white count is 7.5, H&H 8.9 and 26.9, platelet count is noted to be 152. Her sodium is 138, potassium 3.4, BUN and creatinine of 7 and 0.7, blood sugar is noted to be 124. ASSESSMENT: This is an 89-year-old female patient admitted to the rehab with a working diagnosis of debility with fatigue, malaise and falls and urinary tract infection. The patient has potential to make improvement. We will institute the following multidisciplinary therapies including, but not limited to physical, occupational, respiratory, speech, nutritional services, prosthetics and orthotics. Given her complex condition and risk for more complications, rehabilitation services cannot be provided at a lower level of care such as a detention facility. PLAN: 1. Admit to [facility] rehab for intensive inpatient therapy to include the following disciplines: A. Physical therapy to improve gait, all transfer skills and bed mobility to a modified independent level. B. Occupational therapy to improve activities of daily living to a modified independent level. C. Case management to assist with discharge planning and placement options. D. Nutrition to assist with nutritional needs. E. Rehabilitation nursing to assist in monitoring the patient's underlying medical conditions and to assist with any type of bowel or bladder management. 2. The patient's current medications and medical care will be continued. 3. The patient will be placed on standard fall precautions. 4. The patient's estimated length of stay is approximately 7-10 days. 5. We will monitor her blood counts closely and transfuse if necessary. We will discuss with care team tomorrow at lunch. TRANSINT:[id number] Voice Confirmation ID: [id number] DOCUMENT ID: [id number] RAJNI notes whether there has been none or any medical/functional change since admission: - No change. RAJNI attests patient continues to be appropriate for IRF: - Remains appropriate for IRF stay. HISTORY AND PHYSICAL [id number] SHERI PATRICK SCOTT MD at 0856 CC: [id number] DICTATION DATE: 09/20/16 1041 [id number] ANALYST: 09/20/16 1128 ADM IN [facility] [address] [id number]
[2016-09-22 09:12] VITALS: BP 151/84
--- NOTE | 2016-09-22 09:13 | NUR ---
SITTING UP IN BED EATING BREAKFAST. ALERT AND ORIENTED TO PERSON AND PLACE, REORIENTED TO TIME. PLEASANT AFFECT. CALL LIGHT IN REACH
--- NOTE | 2016-09-22 11:18 | NUR ---
IN GYM WITH THERAPY
--- NOTE | 2016-09-22 13:09 | NUR ---
Nutrition Follow Up: Pt was unavailable at the time of RD visit. Spoke with PIANO PLAYER and TOOL MACHINE SET UP OPERATOR who reported that pt is not eating much. Pt is eating ~5% meal avg. +BM 09/22/16. Labs reviewed - K+ WNL. Meds noted including Megace. Will change diet to Regular to encourage po intake. Will continue to honor food preferences. Rec continue appetite stimulant. RD will continue to monitor pt progress.
--- NOTE | 2016-09-22 13:15 | NUR ---
SITTING UP IN WHEELCHAIR. NO CONCERNS VOICED. CALL LIGHT IN REACH
--- NOTE | 2016-09-22 15:30 | NUR ---
SITTING UP IN WHEELCHAIR WATCHING TV. NO CONCERNS VOICED CALL LIGHT IN REACH
--- NOTE | 2016-09-22 17:15 | NUR ---
SITTING UP IN BED VISITING WITH FAMILY. NO CONCERNS VOICED AT THIS TIME. CALL LIGHT IN REACH.
--- NOTE | 2016-09-22 18:00 | NUR ---
SITTING UP IN WC.CL IN REACH.
[2016-09-22 19:30] VITALS: BP 147/87
--- NOTE | 2016-09-22 19:35 | NUR ---
PT ASSISTED TO THE BATHROOM WITH CGA. LARGE BM NOTED. PT ASSISTED BACK TO BED. SHE WAS MODERATELY SOB WHEN BROUGHT BACK TO BED. IT SUBSIDED QUICKLY AFTER ABOUT 3 MINUTES. PT ASSISTED TO REPOSITION IN BED. O2 IS ON @ 3LPM PER NC. TELEMETRY UNIT IS INTACT. BED ALARM IS ON. SALINE LOCK NOTED TO RIGHT HAND. NO REDNESS OR EDEMA NOTED AT THE INSERTION SITE. SR'S ARE UP X 2 IN BED. CALL LIGHT AND BEDSIDE TABLE ARE WITHIN EASY REACH.
--- NOTE | 2016-09-22 21:18 | NUR ---
PT ASSISTED TO THE BATHROOM WITH CGA. VOIDED WITHOUT DIFFICULTY. NO ACUTE DISTRESS NOTED.
--- NOTE | 2016-09-22 23:50 | NUR ---
RESTING QUIETLY IN BED, EYES CLOSED. APPEARS COMFORTABLE.
--- NOTE | 2016-09-23 02:59 | NUR ---
PT IS RESTING QUIETLY IN BED WITH EYES CLOSED. RESPS ARE EVEN AND UNLABORED. NO ACUTE DISTRESS NOTED.
[2016-09-23 07:03] LABS: BASOPHILS 0.3 % (0-2); EOSINOPHILS 3.6 % (0-7); HEMATOCRIT 28.2 % (36.0-48.0); HEMOGLOBIN 9.3 g/dL (12-16); IMMATURE GRANULOCYTES 0.5 % (0-5); LYMPHOCYTES 20.6 % (15-50); MCH 30.8 pg (26.0-34.0); MCV 93.4 fL (80.0-100.0); MEAN PLATELET VOLUME 10.2 fL (7.4-10.4); MONOCYTES 10.4 % (2-11); NEUTROPHILS 64.6 % (40-80); PLATELET COUNT 190 10x3/uL (130-400); RBC 3.02 10x6/uL (4.00-5.40); RDW 14.6 % (11.5-14.5)
[2016-09-23 07:23] LABS: CALC OSMOLALITY 274 mosm/kg (275-300); CALCIUM 8.1 mg/dL (8.5-10.1); CHLORIDE - SERUM 102 mmol/L (98-107); CREATININE - SERUM 0.7 mg/dL (0.6-1.3); GLUCOSE 117 mg/dL (74-106); POTASSIUM - SERUM 3.4 mmol/L (3.5-5.1); SODIUM 138 mmol/L (136-145); UREA NITROGEN 7 mg/dL (7-18); eGFR NON AFRICAN AMERICAN 83 mL/min (90-120)
--- NOTE | 2016-09-23 07:29 | NUR ---
RESTING QUIETLY IN BED CALL LIGHT IN REACH
[2016-09-23 08:00] VITALS: BP 135/64
--- NOTE | 2016-09-23 08:00 | NUR ---
PATIENT SITTING UP IN WHEELCHAIR TO HAVE BREAKFAST. ALERT/ORIENT TO PERSON, PLACE AND TIME. OXYGEN ON AT 3L PER N/C. TELEMETRY ON, INTACT. CALL LIGHT WITHIN REACH. CHAIR ALARM ON.
--- NOTE | 2016-09-23 09:42 | NUR ---
PATIENT WORKING WITH PHYSICAL THERPAIST IN REHAB ROOM. VOICES NO PAIN/DISC AT THIS TIME
--- NOTE | 2016-09-23 09:59 | NUR ---
MAINTENANCE COORDINATOR NOTIFIED THIS NURSE ON TELEMETRY SEVEN BEATS OF A-FIBB. PATIENT WORKING WITH PHYSICAL THERAPIST. THIS NURSE CHECKED ON PATIENT. NO S/S OF DISTRESS, RESITORY NORMAL. DENIES ANY PAIN/DISC. V/S WNL
[2016-09-23 12:18] LABS: SPE - A/G RATIO 1.1 (0.7-1.7); SPE - ALBUMIN 2.7 g/dL (2.9-4.4); SPE - ALPHA-1 GLOBULIN 0.4 g/dL (0.0-0.4); SPE - ALPHA-2 GLOBULIN 0.7 g/dL (0.4-1.0); SPE - BETA GLOBULIN 0.8 g/dL (0.7-1.3); SPE - GAMMA GLOBULIN 0.6 g/dL (0.4-1.8); SPE - M-SPIKE Not Observed g/dL (Not Observed); SPE - TOTAL PROTEIN 5.2 g/dL (6.0-8.5)
--- NOTE | 2016-09-23 15:26 | NUR ---
PATIENT BACK IN BED AFTER THERAPY. MOD ASST FROM WHEELCHAIR INTO BED. BED ALARM ON.
--- NOTE | 2016-09-23 18:18 | NUR ---
PATIENT TAKEN TO THE BATHROOM. CONT OF URINE. SITTING UP IN WHEELCHAIR TO EAT SUPPER.
--- NOTE | 2016-09-23 19:15 | NUR ---
RESTING QUIETLY IN BED, EYES CLOSED. O2 PER N/C. SR UP X3 WITH WATER AND CALL LIGHT IN REACH.
[2016-09-23 20:50] VITALS: BP 146/71
--- NOTE | 2016-09-23 20:50 | NUR ---
ASSESSMENT AND HS MEDS COMPLETE. ASSISTED PATIENT UP TO BR TO URINATE, AND THEN BACK TO BED.
--- NOTE | 2016-09-23 22:00 | NUR ---
ASSISTED PATIENT UP TO BR TO URINATE AND THEN BACK TO BED.
--- NOTE | 2016-09-24 00:05 | NUR ---
ASSISTED PATIENT UP TO BR @ 6786. BATHED HER WHILE ON COMMODE SHE DID NOT WANT A SHOWER. CHANGED HER PJ'S, HER PULL-UP BRIEF AND HER BED LINENS, AND THEN RETURNED HER TO BED. CURRENTLY SHE IS AWAKE, BUT SLEEPY.
--- NOTE | 2016-09-24 02:05 | NUR ---
REMAINS IN BED, RESTING QUIETLY, EYES CLOSED.
--- NOTE | 2016-09-24 04:00 | NUR ---
IN BED, AWAKE. RECEIVING R/T UPDRAFT. WAS LAST UP TO BR @ 0305. PATIENT HAS ATTEMPTED OOB ALONE X5 TONIGHT SO FAR.
--- NOTE | 2016-09-24 06:15 | NUR ---
FLUSHED PATIENT'S RIGHT HAND S/L--REMAINS PATENT. ASSISTED HER UP TO BR TO URINATE, AND THEN BACK TO BED.
--- NOTE | 2016-09-24 06:53 | NUR ---
RESTING IN BED QUIETLY. CALL LIGHT IN REACH
[2016-09-24 07:45] VITALS: BP 135/77
--- NOTE | 2016-09-24 08:01 | NUR ---
PATIENT ALERT/ORIENTX1 TO 2. BED ALARM ON. CALL LIGHT WITHIN REACH. VOICES NO NEEDS AT THIS TIME. TELEMETRY IN PLACE. OXYGEN AT 3L PER N/C. PATIENT ON ELELCTROLIGHT PROTOCHOL. WAITING FOR LAB RESULTS.
--- NOTE | 2016-09-24 10:41 | NUR ---
PATIENT IN REHAB ROOM. WORKING WITH PHYSICAL THERAPIST. DENIES ANY PAIN/DISC AT THIS TIME.
--- NOTE | 2016-09-24 12:59 | NUR ---
PATIENT HELPED INTO BATHROOM. MOD ASST ON ONE FROM BED TO WHEELCHAIR. MIN ASST FROM WHEELCHAIR TO TOILET DUE TO GRAB BARS BY TOILET
--- NOTE | 2016-09-24 17:10 | NUR ---
TELEMETRY. HR 110. PVC WITH PAC.
--- NOTE | 2016-09-24 20:20 | NUR ---
ASSISTED PT TO BATHROOM AND BACK TO BED.
--- NOTE | 2016-09-24 20:50 | NUR ---
CHANGE NEW IV TUBING.
--- NOTE | 2016-09-24 21:20 | NUR ---
GIVEN IV ROCEPHIN.
--- NOTE | 2016-09-24 22:40 | NUR ---
ASSTSTED PT TO BATHROOM AND BACK TO BED.
--- NOTE | 2016-09-24 23:05 | NUR ---
ASSISTED PT TO BATHROOM AND BACK TO BED.
[2016-09-24 23:32] VITALS: BP 121/71
--- NOTE | 2016-09-25 00:20 | NUR ---
ASSISTED PT TO BATHROOM AND BACK TO BED.
--- NOTE | 2016-09-25 02:35 | NUR ---
PT ATTEMPTING TO CRAWL OUT OF BED, IGNORES BED ALARM, ASSISTED PT TO BATHROOM. PT HAD SMEAR OF BM ON BRIED, ASSISTED PT WTIH DONNING NEW ATTEND. PT NEEDS ASSISTANCE AND CUES FOR TOILETING.
--- NOTE | 2016-09-25 03:31 | NUR ---
PT REST QUIETLY IN BED WITH EYE CLOSE, BED LOW, CALL LIGHT WITHIN REACH.
[2016-09-25 07:53] VITALS: BP 135/96
--- NOTE | 2016-09-25 09:00 | NUR ---
PT AM MEDS ADMINISTERED. PT DENIES NEEDS. WCTM.
--- NOTE | 2016-09-25 12:15 | NUR ---
PT EATING LUNCH, DENIES NEEDS. WCTM.
--- NOTE | 2016-09-25 14:30 | NUR ---
PT RESTING QUIETLY, FAMILY IN ROOM, DENIES NEEDS. WCTM.
--- NOTE | 2016-09-25 18:15 | NUR ---
PT EATING DINNER, DENIES NEEDS. WCTM.
--- NOTE | 2016-09-25 20:10 | NUR ---
PT. IN BED WITH HOB UP FOR COMFORT AND IS CONVERSING WITH ROOMMATE. NO VOICED NEEDS AT THIS TIME. ASSESSMENT COMPLETED. O2 ON AT 3L/MIN VIA N/C WITHOUT ANY S/S DISTRESS. CALL LIGHT WITHIN REACH.
[2016-09-25 21:36] VITALS: BP 140/72
--- NOTE | 2016-09-25 23:14 | NUR ---
PT. IN BED WITH HOB UP FOR COMFORT WITH EYES CLOSED AND RESP. EVEN. O2 ON AT 3L/MIN VIA N/C WITHOUT ANY S/S DISTRESS. CALL LIGHT WITHIN REACH.
--- NOTE | 2016-09-26 03:03 | NUR ---
PT. IN BED WITH HOB UP FOR COMFORT WITH EYES CLOSED AND REST. DEEP AND EVEN. O2 ON AT 3L/MIN VIA N/C WITHOUT ANY S/S DISTRESS OBSERVED. CALL LIGHT REMAINS WITHIN REACH.
[2016-09-26 07:03] LABS: BASOPHILS 0.2 % (0-2); HEMATOCRIT 30.5 % (36.0-48.0); HEMOGLOBIN 9.9 g/dL (12-16); IMMATURE GRANULOCYTES 0.3 % (0-5); LYMPHOCYTES 23.3 % (15-50); MCH 30.7 pg (26.0-34.0); MCHC 32.5 g/dL (31.0-37.0); MCV 94.4 fL (80.0-100.0); MEAN PLATELET VOLUME 10.4 fL (7.4-10.4); MONOCYTES 8.4 % (2-11); NEUTROPHILS 64.8 % (40-80); RBC 3.23 10x6/uL (4.00-5.40); RDW 14.6 % (11.5-14.5)
[2016-09-26 07:11] LABS: ANION GAP 12.2 mmol/L (8-16); CALCIUM 8.3 mg/dL (8.5-10.1); CARBON DIOXIDE 27.1 mmol/L (21.0-32.0); CREATININE - SERUM 0.8 mg/dL (0.6-1.3); POTASSIUM - SERUM 3.3 mmol/L (3.5-5.1)
[2016-09-26 07:24] LABS: PLATELET COUNT 229 10x3/uL (130-400)
--- NOTE | 2016-09-26 07:30 | NUR ---
ASSISTED BACK TO BED WITH MIN ASSIST. ELEVATED HOB [address] O2 [address] 3L VIA NASAL CANULA. ALERT AND ORIENTED X2. DENIES ANY PAIN. CALL LIGHT IN REACH.
[2016-09-26 08:00] VITALS: BP 131/72
--- NOTE | 2016-09-26 09:30 | NUR ---
LYING IN BED EYES CLOSED RESTING QUIETLY. EASILY AROUSED WITH STIMULI. CALL LIGHT IN REACH.
--- NOTE | 2016-09-26 10:43 | NUR ---
IN BED READING PAPER;CL IN REACH.
--- NOTE | 2016-09-26 11:30 | NUR ---
ASSISTED TO RESTROOM MIN ASSIST. DENIES ANY PAIN.
--- NOTE | 2016-09-26 12:10 | NUR ---
D/C RIGHT HAND IV. CATHETER INTACT. NO REDNESS OR SWELLING. RESITED TO LEFT WRIST 22G SALINE LOCKED. TOLERATED WELL.
--- NOTE | 2016-09-26 15:24 | NUR ---
NUTRITION MONITORING & EVAL CHART REVIEWED. REG DIET WITH 75% AVERAGE INTAKE RECENT MEALS. RD FOLLOWING
--- NOTE | 2016-09-26 15:25 | NUR ---
OUT OF ROOM IN GYM WITH PHYSICAL THERAPY. TOLERATING WELL
--- NOTE | 2016-09-26 17:15 | NUR ---
SITTING UP IN BED 90 DEGREES. OXYGEN 3L VIA NASAL CANULA. NO CONCERNS VOICED. CALL LIGHT IN REACH.
--- NOTE | 2016-09-26 19:45 | NUR ---
PT RESTING IN BED, DENIES NEEDS. WCTM.
[2016-09-26 20:49] VITALS: BP 134/65
--- NOTE | 2016-09-26 22:35 | NUR ---
PT HS MEDS ADMINISTERED. PT DENIES NEEDS. WCTM.
--- NOTE | 2016-09-27 02:30 | NUR ---
PT HAS BEEN UP TO BR MULTIPLE TIMES THROUGH THE NIGHT. PT C/O OF SOB WHEN AMBULATING. O2 SATS REMAIN AROUND 94. CL IN REACH. WCTM.
--- NOTE | 2016-09-27 07:30 | NUR ---
LYING IN BED EYES CLOSED RESTING QUIETLY. EASILY AROUSED WITH VERBAL STIMULI. CALL LIGHT IN REACH.
[2016-09-27 09:23] VITALS: BP 121/65
--- NOTE | 2016-09-27 09:30 | NUR ---
ASSISTED TO BATHROOM WITH MIN ASSIST. DENIES PAIN.
--- NOTE | 2016-09-27 11:15 | NUR ---
IN GYM WITH PHYSICAL THERAPY. TOLERATED WELL PER CECIL.
--- NOTE | 2016-09-27 12:07 | NUR ---
SITTING UP IN CHAIR EATING LUNCH.CL IN REACH.
--- NOTE | 2016-09-27 13:15 | NUR ---
SITTING UP IN WHEELCHAIR WATCHING TV. DENIES PAIN. CALL LIGHT IN REACH.
--- NOTE | 2016-09-27 15:30 | NUR ---
LYING IN BED EYES CLOSED RESTING QUIETLY. RISE AND FALL OF CHEST. STILL ON 3L OXYGEN VIA NASAL CANULA. CALL LIGHT IN REACH.
--- NOTE | 2016-09-27 17:30 | NUR ---
SITTING UP IN BED 90 DEGREES EATING DINNER AND VISTING WITH DAUGHTER. DENIES PAIN. CALL LIGHT IN REACH
--- NOTE | 2016-09-27 19:00 | NUR ---
PATIENT CALLED. ASSISTED HER UP TO BR TO URINATE, AND THEN BACK TO BED.
[2016-09-27 19:35] VITALS: BP 157/74
--- NOTE | 2016-09-27 19:35 | NUR ---
ASSESSMENT AND VS COMPLETE. DENIES CURRENT NEEDS.
--- NOTE | 2016-09-27 22:05 | NUR ---
GAVE PATIENT HS PO MEDS. FOUND NEW S/L INSERTED TODAY ON DAY SHIFT TO BE NON-PATENT. D/C'D 22GA S/L FROM LEFT WRIST AND OBTAINED 22GA S/L ACCESS IN LEFT INNER FOREARM ON 1ST ATTEMPT. STARTED IV ROCEPHIN 1GM TO RUN PER PUMP OVER 30 MINUTES.
--- NOTE | 2016-09-27 23:45 | NUR ---
PATIENT ASKED FOR ASSIST TO BR FOR 4TH TIME SINCE START OF SHIFT. PATIENT IS ORIENTED X1 AND HAS NO SENSE OF TIME. HAD BEEN WORKING WITH HER THE LAST TIME I WORKED ON 09/24 PATIENT WAS ASKING TO URINATE MORE AND MORE FREQUENTLY THROUGH THE NIGHT WITHOUT EVIDENCE OF INCONTINENCE. ON THAT OCCASION PATIENT WENT 4 HRS BETWEEN TOILETINGS A RESULT OF FALLING ASLEEP AROUND 0200 AND NOT AWAKENING UNTIL 0600. ENCOURAGE PATIENT TO WAIT AT LEAST ANOTHER 30 MINUTES IT HAS BEEN BARELY AN HOUR SINCE HER LAST TOILETING. SAYS SHE WILL TRY TO WAIT AT LAST 30 MINUTES. SAYS HER RIGHT EAR FEELS FUNNY. ON INSPECTION WITH A FLASHLIGHT, I NOTE SHE HAS A WAD OF EARWAX PARTIALLY OCCLUDING HER OUTER EAR CANAL. WILL PASS THIS ON TO DR. BRANCH FOR EVALUATION.
--- NOTE | 2016-09-28 02:25 | NUR ---
ASSISTED PATIENT UP TO BR TO URINATE. CHANGED HER PULL-UP DUE TO MODERATE INCONTINENCE DURING SLEEP.
--- NOTE | 2016-09-28 04:40 | NUR ---
RESTING QUEITLY IN BED, EYES CLOSED.
--- NOTE | 2016-09-28 06:00 | NUR ---
FLUSHED LEFT FOREARM S/L. ASSISTED PATIENT UP TO BR TO URINATE AND THEN CHANGED HER PULL-UP BRIEF.
[2016-09-28 06:03] LABS: BASOPHILS 0.2 % (0-2); EOSINOPHILS 2.7 % (0-7); HEMATOCRIT 26.6 % (36.0-48.0); HEMOGLOBIN 8.8 g/dL (12-16); IMMATURE GRANULOCYTES 0.4 % (0-5); LYMPHOCYTES 27.9 % (15-50); MCH 30.9 pg (26.0-34.0); MCHC 33.1 g/dL (31.0-37.0); MCV 93.3 fL (80.0-100.0); MEAN PLATELET VOLUME 9.9 fL (7.4-10.4); NEUTROPHILS 59.8 % (40-80); PLATELET COUNT 192 10x3/uL (130-400); RBC 2.85 10x6/uL (4.00-5.40); RDW 14.3 % (11.5-14.5); WBC 4.8 10x3/uL (4.8-10.8)
[2016-09-28 06:46] LABS: CALC OSMOLALITY 273 mosm/kg (275-300); CALCIUM 8.3 mg/dL (8.5-10.1); CARBON DIOXIDE 27.7 mmol/L (21.0-32.0); CHLORIDE - SERUM 103 mmol/L (98-107); CREATININE - SERUM 0.7 mg/dL (0.6-1.3); GLUCOSE 99 mg/dL (74-106); POTASSIUM - SERUM 3.7 mmol/L (3.5-5.1); SODIUM 138 mmol/L (136-145); UREA NITROGEN 8 mg/dL (7-18); eGFR NON AFRICAN AMERICAN 83 mL/min (90-120)
--- NOTE | 2016-09-28 07:05 | NUR ---
RESTING QUIETLY IN BED CALL LIGHT IN REACH
[2016-09-28 08:00] VITALS: BP 133/78
--- NOTE | 2016-09-28 09:28 | NUR ---
PATIENTS CHAIR ALARM WENT OFF. PATIENT TRYING TO GET UP OUT OF BED TO GO TO THE BATHROOM. THIS NURSE ASST. PATIENT TO BATHROOM. PATIENT IS A MIN TO STANDBY ASST FOR TRANSFERS
--- NOTE | 2016-09-28 12:28 | NUR ---
PATIENTS FAMILY IN ROOM. WAITING TO GO INTO CARE PLAN MEETING. PATIENTS LIGHT TURNED ON BY FAMILY. FAMILY STATED THAT PATIENT NEEDED TO GO TO THE BATHROOM. PATIENT HELPED INTO BATHROOM BY THIS NURSE. STAND BY FROM WHEELCHAIR UNTO TOILET WITH PATIENT USING GRAB BAR. PATIENT NEEDS HELP PULLING UP AND DOWN PAINTS
--- NOTE | 2016-09-28 12:46 | NUR ---
CARE TEAM MEETING: PATIENT FAMILY ATTENDED MEETING, QUESTIONS AND CONCERNS ADDRESSED.TENATIVE DISCHARGE DATE IS 10/05/16 BACK TO HER HOME AT [facility]. WILL CONTNUE TO FOLLOW WITH PATIENT AND WILL ASSIST WITH DISCHARGE NEEDS. WILL CALL FACILITY TO SEE IF THEY HAVE TRANSPORT VAN
--- NOTE | 2016-09-28 12:57 | NUR ---
NEW ORDER FOR PATIENT TO BE A DRN
--- NOTE | 2016-09-28 14:43 | NUR ---
SPEECH THERAPIST IN ROOM. WORKING WITH PATIENT.
--- NOTE | 2016-09-28 14:44 | NUR ---
OCCUPATIONAL THERAPIST WORKING WITH PATIENT. SHOWER GIVEN.
[2016-09-28 18:52] VITALS: BP 133/72
--- NOTE | 2016-09-28 19:00 | NUR ---
RESTING QUIETLY IN BED, EYES CLOSED.
--- NOTE | 2016-09-28 20:35 | NUR ---
IN BED, AWAKE. JUST RETURNED FROM BR WITH NYLON HOT WIRE CUTTER ASSIST.
--- NOTE | 2016-09-28 22:25 | NUR ---
ASSESSMENT AND HS MEDS COMPLETE. FLUSHED LEFT FA S/L AND STARTED IV ROCEPHIN 1GM IN 50 ML TO INFUSE PER PUMP OVER 30 MINUTES. R/T HER TO DELIVER UPDRAFT AT THIS TIME. PATIENT REFUSED SENNOKOT-S 2 TAB DOSE TONIGHT.
--- NOTE | 2016-09-29 00:10 | NUR ---
ASSISTED PATIENT UP TO BR COMMODE TO URINATE, AND THEN BACK TO BED. DENIES NEEDS.
--- NOTE | 2016-09-29 01:45 | NUR ---
IN BED, RESTING ON LEFT SIDE. NO EVIDENT DISTRESS.
--- NOTE | 2016-09-29 04:15 | NUR ---
ASSISTED PATIENT UP TO BR COMMODE TO URINATE, AND THEN BACK TO BED. PATIENT HAS REMAINED CONTINENT ALL NIGHT.
[2016-09-29 05:50] LABS: BASOPHILS 0.3 % (0-2); EOSINOPHILS 2.1 % (0-7); HEMOGLOBIN 9.2 g/dL (12-16); IMMATURE GRANULOCYTES 0.3 % (0-5); LYMPHOCYTES 31.1 % (15-50); MCH 30.4 pg (26.0-34.0); MCHC 32.9 g/dL (31.0-37.0); MCV 92.4 fL (80.0-100.0); MEAN PLATELET VOLUME 9.6 fL (7.4-10.4); MONOCYTES 7.6 % (2-11); NEUTROPHILS 58.6 % (40-80); PLATELET COUNT 190 10x3/uL (130-400); RBC 3.03 10x6/uL (4.00-5.40); RDW 14.6 % (11.5-14.5); WBC 3.8 10x3/uL (4.8-10.8)
--- NOTE | 2016-09-29 06:10 | NUR ---
FLUSHED LEFT FA S/L WITH 10ML NS. PATIENT BARELY STIRRED WHEN I DID SO. APPEARS VERY COMFORTABLE THIS AM.
[2016-09-29 08:00] VITALS: BP 138/73
--- NOTE | 2016-09-29 08:00 | NUR ---
PATIENT IS VERY CONFUSED. ALERT/ORIENT TO SELF ONLY. BED ALARM AND VERENA ALARM ON WHILE PATIENT IN BED. CALL LIGHT WITHIN REACH. VOICES NO NEEEDS AT THIS TIME
--- NOTE | 2016-09-29 11:09 | NUR ---
PATIENT IS IN REHAB ROOM. WORKING WITH OCCUPATIONAL TERHAPIST. DENIES ANY PAIN/DISC AT THIS TIME.
--- NOTE | 2016-09-29 12:51 | NUR ---
Nutrition Follow Up: Pt is eating 44% meal avg on a regular diet. +BM 09/27/16. No new wt to assess. Meds noted including Megace. Labs reviewed. Pt with improving po intake. Rec continue current diet. Rec continue appetite stimulant. RD following.
--- NOTE | 2016-09-29 18:34 | NUR ---
RESTING QUIETLY IN BED. CALL LIGHT IN REACH
--- NOTE | 2016-09-29 19:30 | NUR ---
PT IN BED WITH HOB UP FOR COMFORT. RESTING QUIETLY. TELEMETRY. ELECTROLYTE PROTOCOL. O2 @ 3L VIA N/C. LT FA SALINE LOC. PT'S CODE STATUS IS DNR. BED AND VERENA ALARM ON. BED IN LOWEST POSITION AND CALL LIGHT WITHIN REACH.
[2016-09-29 19:43] VITALS: BP 139/72
--- NOTE | 2016-09-29 23:30 | NUR ---
PT IN BED WITH HOB UP FOR COMFORT. EYES CLOSED. CHEST RISING AND FALLING. BED IN LOWEST POSITION AND CALL LIGHT WITHIN REACH.
--- NOTE | 2016-09-30 03:22 | NUR ---
PT RESTING QUIETLY, DURING SHIFT THUS FAR PT HAS DEMONSTRATED BEING IMPULSIVE BY GETTING OUT OF BED WITHOUT ACKNOWLEDGING BED EXIT ALARM NOISE. RESPIRATIONS REGULAR AND UNLABORED/
--- NOTE | 2016-09-30 07:51 | NUR ---
PT IS SITTING ON THE SIDE OF HER BED FEEDING SELF BREAKFAST. ALERT AND ORIENTED X 3. DENIES PAIN OR DISCOMFORT. NO SWALLOWING PROBLEMS NOTED. VSS. O2 IS ON @ 3LPM PER NC. NO SOB NOTED. TELEMETRY UNIT IS ON AND INTACT. SR'S ARE UP X 2 IN BED. CALL LIGHT AND BEDSIDE TABLE ARE WITHIN EASY REACH.
[2016-09-30 07:53] VITALS: BP 119/70
--- NOTE | 2016-09-30 09:46 | NUR ---
spoke with Kathia at [facility] and she says that they have no transportation from hospital that family will need to transport patient there.
--- NOTE | 2016-09-30 10:46 | NUR ---
PT IS PARTICIPATING IN THERAPY AT THIS TIME.
--- NOTE | 2016-09-30 13:38 | NUR ---
PT IS RESTING IN HER WC IN HER ROOM AWAITING THERAPY. NO ACUTE DISTRESS NOTED.
--- NOTE | 2016-09-30 17:43 | NUR ---
PT IS FEEDING SELF SUPPER IN HER ROOM. NO NEEDS VOICED. ASSISTED TO THE BATHROOM PRN.
[2016-09-30 18:38] VITALS: BP 135/56
--- NOTE | 2016-09-30 20:08 | NUR ---
REC'D PATIENT LYING IN BED. ALERT AND ORIENTED X3. NISQUALLY. DENIED PAIN AT THIS TIME. DENIED FURTHER NEEDS AT THIS TIME. INSTRUCTED TO CALL IF NEEDED ANYTHING. VERBALIZED UNDERSTANDING. BED LOW, LOCKED, CALL LIGHT IN REACH. ALARM ON.
--- NOTE | 2016-09-30 22:47 | NUR ---
PT. IN BED WITH HOB UP FOR COMFORT WITH EYES CLOSED AND RESP. EVEN. PT. LYING ON HER LEFT SIDE AND HAS HER CALL LIGHT WITHIN REACH.
[2016-10-01 00:06] VITALS: BP 135/56
--- NOTE | 2016-10-01 00:55 | NUR ---
ASSUMED CARE FROM KAN MACK. PT. IN BED WITH HOB UP FOR COMFORT WITH EYES CLOSED AND RESP. EVEN. O2 ON VIA N/C @ 3L/MIN WITHOUT ANY S/S DISTRESS. CALL LIGHT WITHIN REACH.
--- NOTE | 2016-10-01 03:07 | NUR ---
PT. SITTING ON THE SIDE OF HER BED RECEIVING HER BREATHING TX. FROM R.T. NO VOICED NEEDS AT THIS TIME AND HER CALL LIGHT IS WITHIN REACH.
--- NOTE | 2016-10-01 06:44 | NUR ---
PT. IN BED LYING ON HER LEFT SIDE WITH EYS CLOSE AND RESP. EVEN. O2 ON AT 3L/MIN VIA N/C AND NO S/S DISTRESS OBSERVED. CALL LIGHT WITHIN REACH.
--- NOTE | 2016-10-01 07:30 | NUR ---
SITTING ON SIDE OF BED, ATTEMPTING TO GET UP TO GO TO RESTROOM. REORIENTED PT TO CALL BEFORE GETTING UP. ASSISTED TO RESTROOM AND BACK TO BED. BED ALARM ON. ALERT AND ORIENTED TO PERSON. REORIENTED TO PLACE, TIME AND SITUATION. CALL LIGHT IN REACH. WILL CONTINUE TO MONITOR.
[2016-10-01 08:00] VITALS: BP 117/58
--- NOTE | 2016-10-01 08:41 | NUR ---
RESTING QUIETLY IN BED.CL IN REACH.
--- NOTE | 2016-10-01 09:26 | NUR ---
SITTING UP IN BED EYES CLOSED RESTING QUIETLY. EASILY AROUSED WITH VERBAL STIMULI. DENIES ANY NEEDS AT THIS TIME. CALL LIGHT IN REACH. WILL CONTINUE TO MONITOR.
--- NOTE | 2016-10-01 11:30 | NUR ---
ASSISTED TO RESTROOM WITH MIN ASSIST. DENIES PAIN. WILL CONTINUE TO MONITOR
--- NOTE | 2016-10-01 14:10 | NUR ---
SITTING UP IN BED VISTING WITH FAMILY. DENIES NEEDS. CALL LIGHT IN REACH. WILL CONTINUE TO MONITOR.
--- NOTE | 2016-10-01 15:30 | NUR ---
LYING IN BED EYES CLOSED RESTING QUIETLY, NAD NOTED. CALL LIGHT IN REACH. WILL CONTINUE TO MONITOR.
--- NOTE | 2016-10-01 17:37 | NUR ---
SITTING UP IN BED 90 DEGREES EATING DINNER, NAD NOTED. DENIES NEEDS. CALL LIGHT IN REACH. WILL CONTINUE TO MONITOR.
--- NOTE | 2016-10-01 19:15 | NUR ---
ASSISTED PATIENT TO REPOSITION IN BED. SR UP X3. INTERNAL BED ALARM AND VERENA BED ALARM ARE ARMED. CONTINUES ON O2 @ 3L PER N/C.
[2016-10-01 21:20] VITALS: BP 124/67
--- NOTE | 2016-10-01 21:20 | NUR ---
ASSESSMENT AND HS MEDS COMPLETE. DENIES NEEDS. FSBS 170. GAVE PATIENT 2 UNITS SLIDING SCALE REGULAR INSULIN SC IN LEFT UPPER ARM. S/L IN LEFT FOREARM REMAINS PATENT.
--- NOTE | 2016-10-01 22:55 | NUR ---
ASSISTED PATIENT UP TO BR, AND THEN BACK TO BED AFTER URINATING.
--- NOTE | 2016-10-02 00:10 | NUR ---
RESTING QUEITLY IN BED, EYES CLOSED.
--- NOTE | 2016-10-02 01:50 | NUR ---
RESTING QUIETLY, EYES CLOSED. NO DISTRESS NOTED.
--- NOTE | 2016-10-02 04:30 | NUR ---
REMAINS IN BED, EYES CLOSED. RESPIRATIONS ARE QUIET AND UNLABORED.
--- NOTE | 2016-10-02 05:45 | NUR ---
FLUSHED PATIENT'S LEFT FOREARM S/L. S/L REMAINS PATIENT. PATIENT HAS NO C/O AT THIS TIME.
[2016-10-02 07:30] VITALS: BP 122/70
--- NOTE | 2016-10-02 07:31 | NUR ---
LYING IN BED ON RIGHT SIDE EYES CLOSED RESTING QUIETLY, NAD NOTED. OXYGEN ON 3L VIA NASAL CANULA, NO S/SX RESPIRATORY DISTRESS. CALL LIGHT IN REACH. WILL CONTINUE TO MONITOR.
--- NOTE | 2016-10-02 07:40 | NUR ---
RESTING QUIETLY.CL IN REACH.
--- NOTE | 2016-10-02 09:56 | NUR ---
SITTING UP IN BED EYES CLOSED RESTING QUIETLY. EASILY AROUSED WITH STIMULI. CALL LIGHT IN REACH. WILL CONTINUE TO MONITOR.
--- NOTE | 2016-10-02 11:48 | NUR ---
SITTING UP IN BED EYES CLOSED RESTING QUIETLY. DENIES ANY NEEDS. CALL LIGHT IN REACH. WILL CONTINUE TO MONITOR.
--- NOTE | 2016-10-02 14:05 | NUR ---
SITTING UP IN BED VISITING WITH FAMILY. NO CONCERNS VOICED. CALL LIGHT IN REACH. WILL CONTINUE TO MONITOR.
--- NOTE | 2016-10-02 16:04 | NUR ---
SITTING UP IN BED VISTING WITH FAMILY. DENIES NEEDS. CALL LIGHT IN REACH. WILL CONTINUE TO MONITOR.
--- NOTE | 2016-10-02 19:00 | NUR ---
IN BED, AWAKE. DENIES NEEDS.
[2016-10-02 19:45] VITALS: BP 144/77
--- NOTE | 2016-10-02 19:45 | NUR ---
VS AND ASSESSMENT COMPLETE. WAS JUST UP TO BR WITH ASSIST FROM DAY SHIFT NURSE WHO FOUND PATIENT ATTEMPTING OOB WITHOUT ASSIST. ON RETURN TO BED, PATIENT C/O MILD CHEST DISCOMFORT RADIATING FROM MID STERNUM UNDER MARGIN OF LEFT BREAST. MONITORING STATION REPORTS PATIENT CONTINUES IN SR WITH OCCASION PVC'S WHICH IS BASELINE FOR THIS PATIENT. VS ARE STABLE (SEE VITAL SIGNS IN P/I). PULSEOX IS 100% ON 3L O2 PER N/C. AFTER A FEW MINUTES PATIENT STATES DISCOMFORT IS RESOLVING QUICKLY.
--- NOTE | 2016-10-02 21:10 | NUR ---
GAVE PATIENT SCHEDULED HS MEDS PO. TOLD HER I WILL RETURN LATER TO ASSIST HER WITH A SHOWER.
--- NOTE | 2016-10-02 22:20 | NUR ---
SHOWER COMPLETE. PATIENT DRESSED IN FRESH PJ'S AND BRIEF. ALL LINENS CHANGED. RETURNED PATIENT TO BED. ALARMS RESET. DENIES FURTHER NEEDS.
--- NOTE | 2016-10-03 00:10 | NUR ---
ASSISTED PATIENT UP TO BR TO URINATE, AND THEN BACK TO BED. DENIES FURTHER NEEDS.
--- NOTE | 2016-10-03 02:15 | NUR ---
RESTING QUIETLY IN BED, AFTER ASSIST UP TO BR AND BACK @ 0150. PATIENT HAD SET OFF BED ALARM ATTEMPTING OOB WITHOUT CALLING FOR ASSIST.
--- NOTE | 2016-10-03 04:45 | NUR ---
IN BED, EYES CLOSED. RESPIRATIONS ARE QUIET AND UNLABORED.
[2016-10-03 05:49] LABS: BASOPHILS 0.3 % (0-2); EOSINOPHILS 2.4 % (0-7); HEMATOCRIT 28.8 % (36.0-48.0); HEMOGLOBIN 9.7 g/dL (12-16); IMMATURE GRANULOCYTES 0.3 % (0-5); LYMPHOCYTES 29.4 % (15-50); MCH 31.1 pg (26.0-34.0); MCHC 33.7 g/dL (31.0-37.0); MCV 92.3 fL (80.0-100.0); MEAN PLATELET VOLUME 9.9 fL (7.4-10.4); MONOCYTES 9.4 % (2-11); NEUTROPHILS 58.2 % (40-80); PLATELET COUNT 191 10x3/uL (130-400); RBC 3.12 10x6/uL (4.00-5.40); RDW 14.5 % (11.5-14.5); WBC 3.7 10x3/uL (4.8-10.8)
[2016-10-03 06:05] LABS: ANION GAP 11.1 mmol/L (8-16); CALCIUM 8.2 mg/dL (8.5-10.1); CARBON DIOXIDE 25.3 mmol/L (21.0-32.0); CREATININE - SERUM 0.8 mg/dL (0.6-1.3); POTASSIUM - SERUM 3.4 mmol/L (3.5-5.1)
--- NOTE | 2016-10-03 06:40 | NUR ---
K+ 3.4 . GAVE PATIENT 40MEQ KCL IN ORANGE JUICE PER ELECTROLYTE PROTOCOL.
--- NOTE | 2016-10-03 07:17 | NUR ---
SITTING UP IN BED DRINKING JUICE. ALERT AND ORIENTED TO PERSON. REORIENTED TO PLACE AND TIME. CALL LIGHT IN REACH. WILL CONTINUE TO MONITOR.
[2016-10-03 09:13] VITALS: BP 113/76
--- NOTE | 2016-10-03 09:29 | NUR ---
LYING IN BED ON RIGHT SIDE, EYES CLOSED RESTING QUIETLY, NAD NOTED. OXYGEN ON 3L VIA NASAL CANULA, NO RESPIRATORY DISTRESS NOTED. CALL LIGHT IN REACH. WILL CONTINUE TO MONITOR
--- NOTE | 2016-10-03 11:42 | NUR ---
IN GYM WITH OCCUPATIONAL THERAPY.
--- NOTE | 2016-10-03 17:30 | NUR ---
LYING IN BED EYES CLOSED RESTING QUIETLY, NAD NOTED. EASILY AROUSED WITH STIMULI. CALL LIGHT IN REACH. WILL CONTINUE TO MONITOR
--- NOTE | 2016-10-03 19:00 | NUR ---
IN BED, HAVEING JUST BEEN ASSISTED UP TO BR COMMODE AND BACK TO BED. DENIES CURRENT NEEDS.
--- NOTE | 2016-10-03 19:19 | NUR ---
RESTING QUIETLY IN BED. CALL LIGHT IN REACH
[2016-10-03 20:07] VITALS: BP 124/72
[2016-10-03 20:20] VITALS: BP 131/77
--- NOTE | 2016-10-03 22:15 | NUR ---
ASSESSMENT AND HS MEDS COMPLETE. TURNED PATIENT TO LEFT SIDELYING POSITION AND ASKED HER TO REMAIN THERE FOR AT LEAST 15 MINUTES TO ALLOW HER ANTIBIOTIC EARDROP FULL PENETRATION IN HER RIGHT EAR CANAL. HAD ALREADY DONE SAME ON RIGHT SIDE FOR LEFT EAR MED DELIVERY. DENIES CURRENT NEEDS. PATIENT ONLY ORIENTED X1 TONIGHT.
--- NOTE | 2016-10-04 00:10 | NUR ---
RESTING QUIETLY ON LEFT SIDE, EYES CLOSED.
--- NOTE | 2016-10-04 01:50 | NUR ---
CONTINUES IN BED ON LEFT SIDE. APPEARS COMFORTABLE.
--- NOTE | 2016-10-04 04:15 | NUR ---
SET OFF BED ALARM ATTEMPTING OOB ALONE. ASSISTED PATIENT TO AMBULATE TO BR COMMODE AND THEN LEFT HER TO SEAT HERSELF WHILE I ATTENDED TO HER ROOMMATE. AFTER CLEANSING AND CHANGEIN HER ROOMMATE I RETURNED TO PATIENT TO FIND THAT SHE HAD FAILED TO PULL DOWN HER PANTS AND BRIEF AND HAD HAD A VERY SOFT BM IN THEM WHILE ON COMMODE. VREY LITTLE BM OR URINE ENDED UP IN THE COMMODE. CLEANSED PATIENT THOROUGHLY, ASSISTED HER TO DON A FRESH PULL-UP BRIEF, AND RETURNED HER TO BED. RESET BED ALARMS. CONTINUES ESSENTIALLY ORIENTED TO SELF ONLY.
--- NOTE | 2016-10-04 06:30 | NUR ---
IN BED, AWAKE. PHLEBOTAMIST DRAWING LABS.
--- NOTE | 2016-10-04 07:13 | NUR ---
RESTING QUIETLY IN BED WITH EYES CLOSED. CALL LIGHT IN REACH
--- NOTE | 2016-10-04 07:45 | NUR ---
SITTING UP IN WHEELCHAIR EATING BREAKFAST. DENIES ANY PAIN. ALERT AND ORIENTED TO PERSON SEEMS TO HAVE MORE CONFUSION THIS MORNING. WILL CONTINUE TO MONITOR. REORIENTED TO ROOM AND FUNCTIONS OF CALL LIGHT. CHAIR ALARM ON.
[2016-10-04 08:49] VITALS: BP 138/66
--- NOTE | 2016-10-04 09:25 | NUR ---
ASSISTED TO RESTROOM AND GETTING DRESSED WITH MIN ASSIST. ASSISTED BACK TO ROOM TO ADMINISTER MEDS. PT HAD NO DIFFICULTY SWALLOWING THIS MORNING. WILL CONTINUE TO MONITOR AND REINFORCE SWALLOWING TECHNIQUES TODAY. CALL LIGHT IN REACH.
--- NOTE | 2016-10-04 10:00 | NUR ---
VIRGILIO WITH [facility] CALLED IN REGARDS TO EVALUATION AND ADMIN UPON DC FROM OUR FACILITY PER FAMILY REQUEST. INFORMED VIRGILIO I WOULD GET BACK WITH HIM CALL BACK # [phone]. [id number]-SPOKE TO DAUGHTER JOSE AND SHE ADVISED THAT SHE DID IN FACT CONTACT [facility] FOR HOSPICE CONSULT. 1015-CALLED VIRGILOI AND ADVISED THAT ORDERS WERE IN AND THAT HE COULD SEND A EVAL NURSE PER TIMMY GONSALES
--- NOTE | 2016-10-04 11:17 | NUR ---
LYING IN BED EYES CLOSED RESTING. EASILY AROUSED WITH STIMULI. DENIES PAIN. CALL LIGHT IN REACH. WILL CONTINUE TO MONITOR
--- NOTE | 2016-10-04 15:21 | NUR ---
LYING IN BED EYES CLOSED RESTING, NAD NOTED. OXYGEN ON 3 L VIA NASAL CANULA, NO RESPIRATORY DISTRESS NOTED. CALL LIGHT IN REACH. WILL CONTINUE TO MONITOR
--- NOTE | 2016-10-04 17:33 | NUR ---
SITTING UP IN BED EATING DINNER. DENIES ANY NEEDS. CALL LIGHT IN REACH
--- NOTE | 2016-10-04 19:00 | NUR ---
PATIENT SET OFF BED ALARM ATTEMPTING UP WITHOUT ASSIST. DAY SHIFT NURSE NOW ASSISTING HER UP TO BR TO URINATE.
--- NOTE | 2016-10-04 20:35 | NUR ---
ASSESSMENT AND VS COMPLETE. TOLD PATIENT I WILL RETURN LATER WITH HER BEDTIME MEDS.
--- NOTE | 2016-10-04 21:35 | NUR ---
PATIENT JUST RETURNED FROM COMMODE, ASSISTED BY RONNA GONSALES. CHANGED TO GINI'S WHILE IN . PATIENT REFUSED SHOWER. GAVE PATIENT HS MEDS, BUT HELD SENNOKOT-S DUE TO MULTIPLE LOOSE STOOLS EARLIER TODAY.
--- NOTE | 2016-10-04 22:30 | NUR ---
SET OFF BED ALARMS ATTEMPTING OOB WITHOUT CALLING FOR ASSIST. THIS IS THE 3RD TIME TONIGHT. WAS ASSISTED UP TO BR TO URINATE, AND THEN BACK TO BED BY RONNA GONSALES.
--- NOTE | 2016-10-05 00:35 | NUR ---
RESTING IN BED ON LEFT SIDE. NO APPARENT DISCOMFORT.
--- NOTE | 2016-10-05 02:10 | NUR ---
IN BED, ON LEFT SIDE. NO DISTRESS EVIDENT.
--- NOTE | 2016-10-05 03:45 | NUR ---
CONTINUES IN BED, EYES CLOSED. LYING ON LEFT SIDE. RESPIRATIONS UNLABORED.
--- NOTE | 2016-10-05 05:34 | NUR ---
MONITORING STATION JUST CALLED TO REPORT PATIENT JUST HAD A RUN OF 10 PVC'S. CHECKED PATIENT. AWOKE PATIENT. SAYS SHE FEELS FINE. WILL CONTINUE ON TELEMETRY BEFORE.
[2016-10-05 06:54] LABS: BASOPHILS 0.3 % (0-2); EOSINOPHILS 2.8 % (0-7); HEMATOCRIT 28.3 % (36.0-48.0); HEMOGLOBIN 9.3 g/dL (12-16); IMMATURE GRANULOCYTES 0.3 % (0-5); LYMPHOCYTES 34.1 % (15-50); MCH 30.3 pg (26.0-34.0); MCHC 32.9 g/dL (31.0-37.0); MCV 92.2 fL (80.0-100.0); MEAN PLATELET VOLUME 10.6 fL (7.4-10.4); MONOCYTES 10.6 % (2-11); NEUTROPHILS 51.9 % (40-80); PLATELET COUNT 193 10x3/uL (130-400); RBC 3.07 10x6/uL (4.00-5.40); RDW 14.5 % (11.5-14.5); WBC 3.6 10x3/uL (4.8-10.8)
[2016-10-05 07:01] LABS: CALCIUM 8.1 mg/dL (8.5-10.1); CREATININE - SERUM 0.9 mg/dL (0.6-1.3)
--- NOTE | 2016-10-05 08:00 | NUR ---
SHIFT ASSMT COMPLETED.CL IN REACH
[2016-10-05 08:09] VITALS: BP 114/58
--- NOTE | 2016-10-05 10:12 | NUR ---
PATIENT DISCHARGING HOME TODAY WITH FAMILY AND [facility]. HOSPICE WILL ARRANGE FOR ALL DME AND O2. QUIQUE HERRERA 10/10/16 @ 10:00. [facility] FORM SIGNED, EXPLIANED AND FILED IN CHART
--- NOTE | 2016-10-05 12:57 | NUR ---
GONE OVER DISCHARGE INSTRUCTIONS WITH PT AND DAUGHTER. DAUGHTER STATES PT HAS ALL ORDERED DISCHARGE MEDICATIONS AT HOME, GOING IN TO [facility].
== END 2016-10-05 13:15 | disposition home health service (06) | DRG 947 ==
LOC: D.REHAB 19:38
PROVIDERS: Internal Medicine Hematology & Oncology; ADMIT Emergency Medicine
DX: R53.81 Other malaise (principal); I60.9 Nontraumatic subarachnoid hemorrhage, unspecified; N39.0 Urinary tract infection, site not specified; R53.83 Other fatigue; B96.20 Unspecified Escherichia coli [E. coli] as the cause of diseases classified elsewhere; Z91.81 History of falling; Z66 Do not resuscitate; G31.9 Degenerative disease of nervous system, unspecified; G93.89 Other specified disorders of brain; D72.829 Elevated white blood cell count, unspecified; D64.9 Anemia, unspecified; E78.5 Hyperlipidemia, unspecified; I25.10 Atherosclerotic heart disease of native coronary artery without angina pectoris; L40.9 Psoriasis, unspecified; Z86.73 Personal history of transient ischemic attack (TIA), and cerebral infarction without residual deficits